=== PATIENT | female | born 1935 | race Hispanic/Latino ===

== ENCOUNTER 2017-09-20 12:11 | Emergency (ER) | payer MEDICARE ==
[~2017-09-20] VITALS: Ht 152.4 cm; Wt 47.2 kg
--- OUTSIDE RECORDS SUMMARY | 2017-09-20 12:14 | XMS REPORT | Summary of Care ---
Author Author Manish Tiarra Organization Unknown Address Unknown Phone Unavailable Care Team Providers Care Ribbon Hand Name Role Phone ManishFiorella rosaslyn Unavailable Unavailable YUMIKO Jasmine, WADE Unavailable Unavailable TIM HAM MD Unavailable Unavailable Unavailable Unavailable Functional Status Name Dates Details Functional status health issues are not documented Status: Name Dates Details Cognitive status health issues are not documented Status: Problems Name Dates Details Laryngitis (464.00, J04.0) Status: Active Sore throat (462, J02.9) Status: Active Dysphagia (787.20, R13.10) Status: Active Esophageal dysmotility (530.5, K22.4) Status: Active Medications Name Dates Details Gabapentin 300 MG Oral Capsule TAKE 1 CAPSULE 3 TIMES DAILY Active Famotidine 20 MG Oral Tablet TAKE 1 TABLET TWICE DAILY. * Quantity: 60 Refills: 11 Active Ipratropium-Albuterol 0.5-2.5 (3) MG/3ML Inhalation Solution INHALE 2 PUFFS TWICE DAILY * Refills: 0 Active 30 x 3 ML Plas Cont Vitamin C 1000 MG Oral Tablet TAKE 1 TABLET DAILY. * Refills: 0 Active RaNITidine HCl - 150 MG Oral Tablet TAKE 1 TABLET TWICE DAILY. * Refills: 0 Active MagOx 400 TABS TAKE 1 TABLET DAILY * Refills: 0 Active Calcitonin (Hollister) 200 UNIT/ACT Nasal Solution INSTILL 1 PUFF DAILY * Refills: 0 Active 3.7 ML Bottle Tylenol 500 MG CAPS TAKE 1 CAPSULE 3 TIMES DAILY * Refills: 0 Active Iron TABS TAKE 1 TABLET DAILY DIRECTED. * Refills: 0 Active Centrum Silver Adult 50+ Oral Tablet TAKE 1 TABLET DAILY. * Refills: 0 Active Calcium TABS TAKE 1 TABLET DAILY. * Refills: 0 Active Vitamin D3 1000 UNIT Oral Tablet TAKE 1 TABLET DAILY. * Refills: 0 Active Levsin/SL 0.125 MG Sublingual Tablet Sublingual PLACE 1 TABLET UNDER THE TONGUE 3 TIMES DAILY NEEDED. * Quantity: 90 Refills: 3 OBONYJOSAFAT N.P.WADE * Start : 25-Apr-2017 Active Allergies and Adverse Reactions Name Dates Details codeine (Allergy) Reaction: Rash Status: Active Past Medical History Name Dates Details History of Depressive disorder (311, F32.9) Status: Resolved History of migraine headaches (V12.49, Z86.69) Status: Resolved Procedures Procedure Dates Details History of hip surgery Completed Immunization Name Dates Details Immunizations not documented Family History Name Dates Details Family history of asthma (V17.5, Z82.5) Comments: Family History Status: Active Name Dates Details Family history of diabetes mellitus (V18.0, Z83.3) Status: Active Social History Name Dates Details - Status: Name Dates Details Former smoker Vital Signs Date Test Result Details No Known Vitals to report Results Date Description Value Details Results not documented Plan of Care Name Dates Details Planned Observations Planned Goals not documented Instructions Name Dates Details Instructions not documented Encounters Appointment; LEONCIO JAIMES M.D. Encounter Diagnosis: Problem not documented On: 08-Feb-2017 15:00 Appointment; LEONCIO JAIMES M.D. Encounter Diagnosis: Problem not documented On: 01-Mar-2017 13:00 Appointment; LEONCIO JAIMES M.D. Encounter Diagnosis: Problem not documented On: 04-Apr-2017 13:45 Appointment; MARGUERITE IRIZARRY M.D. Encounter Diagnosis: Problem not documented On: 25-Apr-2017 11:30
[2017-09-20] MEDS ORDERED: MEDROL4 MG PO (14:34)
== END 2017-09-20 14:45 | disposition home or self-care (01) ==
LOC: FSED 12:11
DX: M25.561 Pain in right knee (principal); M17.11 Unilateral primary osteoarthritis, right knee
CPT/HCPCS: 99283

== ENCOUNTER 2017-12-08 21:00 | Emergency (ER) | payer MEDICARE ==
[~2017-12-08] VITALS: Ht 152.4 cm; Wt 48.1 kg
[~2017-12-08 21:00] MED LIST: MEDROL4 MG PO
--- OUTSIDE RECORDS SUMMARY | 2017-12-08 21:03 | XMS REPORT | Continuity of Care Document ---
Author Author [facility] Organization [facility] Address [address] [place] [address] Phone Unavailable Care Team Providers Care Dog Breeder Name Role Phone TIM HAM MD PCP Insurance Providers Guarantor Rosette Andersen Address [address] [place] [address] Email [email or web address] Payer Medicare A & B Policy Number [id number] Subscriber's Name Rosette Andersen Relationship 18 Self / Same As Patient Group Number [id number] Group Name RETIRED Effective Date 99 Advance Directives Directive Response Recorded Date/Time Does the patient have an advance directive? No 09/20/17 12:27pm If yes, is advance directive on file with [facility]? No 09/20/17 12:27pm If not on file with [facility] will patient provide a copy? No 09/20/17 12:27pm Do you have a Directive to Physician? No 09/20/17 12:27pm Do you have a Medical Power of Center Medical Director? No 09/20/17 12:27pm Do you have an out of hospital Do Not Resuscitate Order? No 09/20/17 12:27pm Do you have any special needs we should be aware of? No 09/20/17 12:27pm Do you have a support person here with you today? Yes 09/20/17 12:27pm Did patient receive Notice of Privacy Practices? Yes 09/20/17 12:27pm Did patient receive patient rights and responsibilities? Yes 09/20/17 12:27pm Problems No problem information available. Medications Current Home Medications Medication Dose Units Route Directions Days Qty Instructions Start Date Methylprednisolone (Medrol) 4 Mg Tablet 1 Pkt Oral .as Directed 1 Drcm Unit Packet MEDROL DOSE PACK DIRECTED 09/20/17 Social History Smoking Status Start Date Stop Date Former smoker Hospital Discharge Instructions No hospital discharge instruction information available. Plan of Care Discharge Date 09/20/17 2:45pm Disposition HOME, SELF-CARE Condition at Discharge Stable Instructions/Education Provided Osteoarthritis Prescriptions See Medication Section Referrals TIM HAM MD Address: [address] [place] [address] Additional Instructions/Education You may take each day of the Medrol dose pack, first thing in the morning, for 5 days. Alternate Ice and Heat to the right knee, and rest it as much as possible. Use the SARABJIT wrap, while awake to help with swelling. In addition to the Medrol dose pack, you may take Ibuprofen 200 mg - 2-3 tabs every 8-12 hours, with food, for pain and inflammation. Follow-up with your PCP, for referral to an Orthopedist, if the knee pain persists. Functional Status No functional status information available. Allergies, Adverse Reactions, Alerts No allergy information available. Immunizations No immunization information available. Vital Signs Acute Vital Signs Vital Response Date/Time Height 5 ft 0 in 09/20/2017 12:20pm Weight 104 lb 09/20/2017 12:20pm Body Mass Index 20.3 kg/m^2 09/20/2017 12:20pm Results No relevant diagnostic test, laboratory data and/or discharge summary information available. Procedures No procedure information available. Encounters Encounter Location Arrival/Admit Date Discharge/Depart Date Attending Provider Departed Emergency Room [facility] 09/20/17 12:11pm 09/20 2:45pm IVONE KUO MD
[2017-12-08] MEDS ORDERED: ALBUTEROL/IPRATROPIUM 3 ML NEB NEB ONE (21:30)
[2017-12-08] MEDS ORDERED: METHYLPREDNISOLONE SOD SUCC 125 MG/2ML VIAL IM ONE (21:30)
[2017-12-08] MEDS ORDERED: VITAMIN D31000 UNI1 PO (22:56)
[2017-12-08] MEDS ORDERED: VITAMIN C1000 MG PO (22:56)
[2017-12-08] MEDS ORDERED: MAGNESIUM OXID400 MG PO (22:56)
[2017-12-08] MEDS ORDERED: IRON PO (22:56)
[2017-12-08] MEDS ORDERED: CALCITONIN-SAL3.7 ML NS (22:56)
[2017-12-08] MEDS ORDERED: VESICARE5 MG PO (22:56)
[2017-12-08] MEDS ORDERED: ADVAIR 250-501 EACH (22:56)
[2017-12-08] MEDS ORDERED: CALCIUM CARBON500 MG PO (22:56)
[2017-12-08] MEDS ORDERED: COMBIVENT RESPIM4 GM IH (22:56)
[2017-12-08] MEDS ORDERED: LEVOCETIRIZINE D5 MG PO (22:56)
[2017-12-08] MEDS ORDERED: RANITIDINE HCL150 M1 PO (22:56)
[2017-12-08] MEDS ORDERED: GABAPENTIN400 MG PO (22:56)
[2017-12-08 23:29] VITALS: BP 120/64
== END 2017-12-08 23:33 | disposition home or self-care (01) ==
LOC: FSED 21:00
DX: R07.89 Other chest pain (principal); J98.4 Other disorders of lung
CPT/HCPCS: 71046; 80053; 82553; 84484; 85025; 93005; 99283; J2930

== ENCOUNTER 2018-01-02 12:20 | Emergency (ER) | payer MEDICARE ==
[~2018-01-02] VITALS: Ht 152.4 cm; Wt 48.1 kg
[~2018-01-02 12:20] MED LIST changes: +ADVAIR 250-501 EACH; +CALCITONIN-SAL3.7 ML NS; +CALCIUM CARBON500 MG PO; +COMBIVENT RESPIM4 GM IH; +GABAPENTIN400 MG PO; +IRON PO; +LEVOCETIRIZINE D5 MG PO; +MAGNESIUM OXID400 MG PO; +RANITIDINE HCL150 M1 PO; +VESICARE5 MG PO; +VITAMIN C1000 MG PO; +VITAMIN D31000 UNI1 PO
--- OUTSIDE RECORDS SUMMARY | 2018-01-02 12:22 | XMS REPORT | Continuity of Care Document ---
Author Author [facility] Organization [facility] Address [address] [place] [address] Phone Unavailable Care Team Providers Care Needle Punch Operator Name Role Phone TIM HAM MD PCP Insurance Providers Guarantor Rosette Andersen Address [address] [place] [address] Email [email or web address] Payer Medicare A & B Policy Number [id number] Subscriber's Name Rosette Andersen Relationship 18 Self / Same As Patient Group Number [id number] Group Name RETIRED Effective Date 99 Advance Directives Directive Response Recorded Date/Time Does the patient have an advance directive? No 09/20/17 12:27pm If yes, is advance directive on file with [facility]? No 09/20/17 12:27pm If not on file with [facility] will patient provide a copy? No 09/20/17 12:27pm Problems No problem information available. Medications Current Home Medications Medication Dose Units Route Directions Days Qty Instructions Start Date Ascorbic Acid (Vitamin C) 1,000 Mg Tablet 1,000 Mg Oral Daily Calcitonin,Terry,Synthetic (Calcitonin-Terry) 3.7 Ml Clare.pump 1 Sprays Nasal Calcium Carbonate 500 Mg Tablet 600 Mg Oral Cholecalciferol (Vitamin D3) (Vitamin D3) 1,000 Unit Tablet 1,000 Oral Daily Fluticasone/Salmeterol (Advair 250-50 Diskus) 1 Each Disk.w.dev 2 Sprays Daily Gabapentin 400 Mg Capsule 400 Mg Oral Three Times A Day 30 Cap Ipratropium/Albuterol Sulfate (Combivent Respimat Inhal Clare) 4 Gm Aer.w.adap 4 Gm Inhalation Four Times Daily Iron 27 Mg Oral Daily Levocetirizine Dihydrochloride 5 Mg Tablet Mg Oral Daily Magnesium Oxide 400 Mg Tablet 400 Mg Oral Daily Methylprednisolone (Medrol) 4 Mg Tablet 1 Pkt Oral .as Directed 1 Drcm Unit Packet MEDROL DOSE PACK DIRECTED 09/20/17 Ranitidine Hcl 150 Mg Capsule 150 Mg Oral Twice A Day Solifenacin Succinate (Vesicare) 5 Mg Tablet 5 Mg Oral Daily 30 Tab Social History Smoking Status Start Date Stop Date Former smoker Hospital Discharge Instructions No hospital discharge instruction information available. Plan of Care Discharge Date 12/08/17 11:33pm Disposition HOME, SELF-CARE Condition at Discharge Stable Forms Provided Work/School Excuse Prescriptions See Medication Section Functional Status No functional status information available. Allergies, Adverse Reactions, Alerts No known allergies. Immunizations No immunization information available. Vital Signs Acute Vital Signs Vital Response Date/Time Pulse Pulse Rate (adult) 91 bpm (60 - 90) 12/08/2017 11:29pm Respiratory Rate 20 bpm (12 - 24) 12/08/2017 11:29pm Blood Pressure 120/64 mm Hg 12/08/2017 11:29pm Height 5 ft 0 in 12/08/2017 9:05pm Weight 106 lb 12/08/2017 9:05pm Body Mass Index 20.7 kg/m^2 12/08/2017 9:05pm Results No relevant diagnostic test, laboratory data and/or discharge summary information available. Procedures No procedure information available. Encounters Encounter Location Arrival/Admit Date Discharge/Depart Date Attending Provider Departed Emergency Room [facility] 12/08/17 9:00pm 11:33pm TERRELL ABBOTT MD Departed Emergency Room [facility] 09/20/17 12:11pm 09/20 2:45pm IVONE KUO MD
[2018-01-02 14:11] VITALS: BP 119/69
== END 2018-01-02 14:13 | disposition home or self-care (01) ==
LOC: FSED 12:20
DX: R25.1 Tremor, unspecified (principal); J44.9 Chronic obstructive pulmonary disease, unspecified; K21.9 Gastro-esophageal reflux disease without esophagitis; Z99.81 Dependence on supplemental oxygen; Z87.891 Personal history of nicotine dependence
CPT/HCPCS: 80048; 99283

== ENCOUNTER 2018-03-23 10:17 | Inpatient (IN) | payer MEDICARE ==
[~2018-03-23] VITALS: Ht 152.4 cm; Wt 48.6 kg
[2018-03-23] MEDS ORDERED: SODIUM CHLORIDE 0.9% 1000ML 1,000 ML IV STA (10:31)
[2018-03-23] MEDS ORDERED: DIPHENOXYLATE/ATROPINE TAB PO ONE (10:45)
[2018-03-23 11:32] LABS: BASOPHILS # (AUTO) 0.1 (0.0-0.1); BASOPHILS % 1.1 % (0.0-1.0); EOSINOPHILS % 0.2 % (0.0-6.0); HEMATOCRIT 43.1 % (34.2-44.1); HEMOGLOBIN 14.2 g/dL (12.0-16.0); LYMPHOCYTES # (AUTO) 0.5 (1.0-3.2); LYMPHOCYTES % 7.7 % (18.0-39.1); MEAN CORPUSCULAR HGB CONC 32.9 g/dL (31-35); MEAN CORPUSCULAR VOLUME 90.9 fL (81-99); MONOCYTES # (AUTO) 0.4 (0.2-0.8); MONOCYTES % 5.7 % (4.4-11.3); NEUTROPHILS # (AUTO) 5.5 (2.1-6.9); PLATELET COUNT 222 x10e3/uL (140-360); RED BLOOD COUNT 4.74 x10e6/uL (3.6-5.1); RED CELL DISTRIBUTION WIDTH 14.5 % (11.7-14.4)
[2018-03-23 11:52] LABS: ALBUMIN/GLOBULIN RATIO 0.8 (0.8-2.0); ANION GAP 16.2 mmol/L (8-16); CALCIUM 9.7 mg/dL (8.4-10.2); CREATININE, SERUM 1.14 mg/dL (0.57-1.11); POTASSIUM 4.2 mmol/L (3.5-5.1)
[2018-03-23] MEDS ORDERED: ONDANSETRON HCL INJ 2 MG/ML VIAL IV PRN (12:45)
[2018-03-23 13:30] LABS: BAND NEUTROPHILS % (MANUAL) 18 %; LYMPHOCYTES % (MANUAL) 17 % (19-48); METAMYELOCYTES % (MANUAL) 3 % (0-0); MONOCYTES % (MANUAL) 2 % (3.4-9.0); MYELOCYTES % (MANUAL) 1 % (0-0); NEUTROPHILS % (MANUAL) 59 % (40-74)
[2018-03-23] MEDS ORDERED: LEVOFLOXACIN 500MG/D5W 100ML IV SCH (13:30)
[2018-03-23 13:31] LABS: PLATELET ESTIMATE ADEQUATE; PLATELET MORPHOLOGY COMMENT FEW GIANT; RBC MORPHOLOGY COMMENT NORMAL; SMUDGE CELLS FEW
[2018-03-23] MEDS ORDERED: SODIUM CHLORIDE 0.9% 50ML 50 ML ONE (13:37)
[2018-03-23] MEDS ORDERED: IOPAMIDOL 370 MG/ML 200 ML INFUS..BTL INJ ONE (13:37)
[2018-03-23 13:59] LABS: CLARITY,URINE CLEAR (CLEAR); COLOR,URINE YELLOW (YELLOW); LEUKOCYTE ESTERASE ,URINE TRACE (NEGATIVE); NITRITE,URINE NEGATIVE (NEGATIVE); PROTEIN,URINE DIPSTICK TRACE (NEGATIVE)
--- NOTE | 2018-03-23 13:59 | Diagnostic Imaging Report ---
EXAM: CT Abdomen and Pelvis WITH contrast INDICATION: \S\ab pain \S\[id number] \S\[id number] COMPARISON: None. TECHNIQUE: Abdomen and pelvis were scanned utilizing a multidetector helical scanner from the lung base to the pubic symphysis after administration of IV contrast. Coronal and sagittal reformations were obtained. Routine protocol was performed. Scan was performed when during portal venous phase. IV CONTRAST: 100 mL of Isovue 370 ORAL CONTRAST: Water COMPLICATIONS: None RADIATION DOSE: Total DLP: 173.83 mGy*cm Estimated effective dose: (DLP x 0.015 x size factor) mSv CTDIvol has been reviewed. It is below the limits set by the Radiation Protocol Committee (RPC). FINDINGS: LINES and TUBES: None. LOWER THORAX: Bibasilar fibrotic changes. Partially imaged atherosclerotic calcification of coronary arteries. HEPATOBILIARY: No focal hepatic lesions. No biliary ductal dilation. GALLBLADDER: No radio-opaque stnes or sludge. No wall thickening. SPLEEN: No splenomegaly. PANCREAS: Atrophic. No focal lesion. Minimal proximal ductal dilatation up to 4 mm. ADRENALS: No adrenal nodules KIDNEYS/URETERS: Markedly atrophic right kidney. There is a 2.3 cm calculus seen right renal pelvis. Left kidney is unremarkable. No left hydronephrosis. GI TRACT: Multiple air and fluid-filled distended small bowel loops with narrowing of the distal ileal loop. Small hiatal hernia. PELVIC ORGANS/BLADDER: Limited evaluation due to streak artifacts. LYMPH NODES: No lymphadenopathy. VESSELS: There is severe atherosclerotic disease in the aorta and major arterial branches. PERITONEUM / RETROPERITONEUM: No free air or fluid. BONES: Left hip prosthesis. Generalized demineralization limits evaluation. Lumbar spine scoliosis with multilevel advanced degenerative changes. T12 vertebral body compression fracture of indeterminate age. SOFT TISSUES: Unremarkable. IMPRESSION: 1. Multiple air and fluid-filled distended small bowel loops with narrowed and some collapsed distal ileal loops, representing at least partial small bowel obstruction. 2. Markedly atrophic right kidney with a 2.3 cm calculus in right lower pelvis. 3. T12 vertebral body compression fracture of indeterminate age. Signed by: Dr. Nain Cameron MD on 03/23/2018 1:56 PM
[2018-03-23 14:00] LABS: BILIRUBIN,URINE NEGATIVE (NEGATIVE); KETONES,URINE 1+ (NEGATIVE); URINE UROBILINOGEN 0.2 mg/dL (0.2 - 1)
[2018-03-23 14:13] LABS: BACTERIA,URINE FEW /HPF; EPITHELIAL CELLS,URINE RARE /LPF; RBC,URINE 0-5 /HPF (0-5)
[2018-03-23] MEDS ORDERED: LORAZEPAM INJ 2 MG/ML VIAL IV ONE (15:15)
[2018-03-23] MEDS ORDERED: BENZOCAINE/TETRACAINE/BUTAMBEN AERO SPRAY 56 GM CAN TOP ONE (15:15)
[2018-03-23] MEDS: SODIUM CHLORIDE 0.9% 250ML IRRIG IR SCH ×2 (15:45→19:45)
--- NOTE | 2018-03-23 17:13 | Diagnostic Imaging Report ---
EXAMINATION: CHEST SINGLE (PORTABLE) INDICATION: \S\NG TUBE PLACEMENT \S\[id number] \S\[id number] COMPARISON: Same day CT FINDINGS: See below. IMPRESSION: Nasogastric tube is visualized with tip overlying gastric body. Lumbar spine scoliosis with multilevel degenerative changes. Chronic changes of the lungs. Signed by: Dr. Nain Cameron MD on 03/23/2018 5:10 PM
--- NOTE | 2018-03-23 18:05 | History and Physical ---
Patient was admitted through the emergency room. Patient of Dr. Finch. Admitted with apparent lower GI bleed and diarrhea of 5 days duration and abdominal pain. History of end-stage COPD, on home oxygen. Dark stools. Uses a walker at home. Lives with family and caregivers. FAMILY HISTORY: Positive for COPD. The patient quit smoking in 2010. Decreased appetite, dark stools. She is not able to relate her history though she does smile and complains of pain in the abdomen. She has a history of nonfunctioning right kidney with a stone. She was told she was not a candidate for general anesthetic. She has a history of dementia. She is a DNR status. PHYSICAL EXAMINATION VITALS: Temperature 99.2, pulse 70, respirations 18, blood pressure 108/45. HEENT: Head is normocephalic and atraumatic. Eyes: Extraocular muscles intact. LUNGS: Diminished breath sounds. HEART: Regular rhythm. ABDOMEN: Tender in the lower quadrant, right greater than left. EXTREMITIES: Not edematous. Sacral wound. PLAN: Admit for observation. CT of the abdomen is pending. Discussed with the emergency room physician. Her home medications have include vitamin C, calcitonin, vitamin D, Advair, Atrovent, Neurontin, Xyzal, magnesium, Zantac, p.r.n. Medrol, VESIcare, and iron. Thank you for this kind referral. Job#: [id number] SHAKEEL
[2018-03-23 18:27] VITALS: BP 123/73
[2018-03-23 18:34] VITALS: BP 123/73
[2018-03-23 18:44] VITALS: BP 123/73
[2018-03-23] MEDS: ALBUTEROL/IPRATROPIUM 3 ML NEB NEB SCH (19:00)
[2018-03-23 20:00] VITALS: BP 122/76
[2018-03-23 20:06] VITALS: BP 122/76
[2018-03-23] MEDS: HEPARIN SOD (PORCINE) 5,000 UNIT/ML VIAL SC SCH (21:35)
[2018-03-23] MEDS: METRONIDAZOLE 250MG/NS 50ML 50 ML IV SCH (21:39)
[2018-03-24] MEDS: SODIUM CHLORIDE 0.9% 250ML IRRIG IR SCH ×5 (00:09→15:45)
[2018-03-24 00:44] VITALS: BP 104/58
[2018-03-24] MEDS: ALBUTEROL/IPRATROPIUM 3 ML NEB NEB SCH ×4 (01:00→19:30)
[2018-03-24 04:43] LABS: BASOPHILS % 0.4 % (0.0-1.0); EOSINOPHILS # (AUTO) 0.1 (0.0-0.4); HEMATOCRIT 38.8 % (34.2-44.1); HEMOGLOBIN 12.9 g/dL (12.0-16.0); LYMPHOCYTES % 14.7 % (18.0-39.1); MEAN CORPUSCULAR HEMOGLOBIN 29.5 pg (28-32); MEAN CORPUSCULAR HGB CONC 33.2 g/dL (31-35); MEAN CORPUSCULAR VOLUME 88.8 fL (81-99); MONOCYTES # (AUTO) 0.5 (0.2-0.8); MONOCYTES % 6.9 % (4.4-11.3); NEUTROPHILS # (AUTO) 5.1 (2.1-6.9); NEUTROPHILS % 76.6 % (38.7-80.0); PLATELET COUNT 207 x10e3/uL (140-360); RED BLOOD COUNT 4.37 x10e6/uL (3.6-5.1); RED CELL DISTRIBUTION WIDTH 14.4 % (11.7-14.4)
[2018-03-24 05:00] LABS: BLOOD UREA NITROGEN 26 mg/dL (7-26); CALCIUM 8.8 mg/dL (8.4-10.2); CARBON DIOXIDE 21 mmol/L (22-29); GLUCOSE 68 mg/dL (74-118)
[2018-03-24 05:17] LABS: BUN/CREATININE RATIO 31 (6-25); CHLORIDE 108 mmol/L (98-107); CREATININE, SERUM 0.83 mg/dL (0.57-1.11); EST GLOMERULAR FILTRATION RATE > 60 ML/MIN (60-); SODIUM 141 mmol/L (136-145)
[2018-03-24] MEDS: METRONIDAZOLE 250MG/NS 50ML 50 ML IV SCH ×3 (06:07→21:55)
[2018-03-24 06:08] VITALS: BP 114/69
--- NOTE | 2018-03-24 06:49 | Diagnostic Imaging Report ---
EXAM: ABDOMEN-1VIEW (KUB), supine INDICATION: Ileus, NG tube COMPARISON: KUB March 23, 2018 FINDINGS: LINES/TUBES: Tip of nasogastric tube projects over the body of the stomach BOWEL PATTERN: Interval decrease in dilated loops of small bowel. SOFT TISSUES: IV contrast in the pelvis. LUNG BASES: Not included BONES: No acute findings. IMPRESSION: Interval improvement of ileus versus partial small bowel obstruction. Signed by: Dr. Suad Silveira M.D. on 03/24/2018 6:46 AM
[2018-03-24 08:00] VITALS: BP 135/70
[2018-03-24] MEDS: HEPARIN SOD (PORCINE) 5,000 UNIT/ML VIAL SC SCH ×2 (08:47→21:45)
[2018-03-24 09:00] VITALS: BP 135/70
[2018-03-24] MEDS: SALMETEROL/FLUTICASONE 250/50 INH SCH ×2 (09:00→19:30)
[2018-03-24] MEDS: LEVOFLOXACIN 250MG/D5W 50ML PREMIX BAG IV SCH (12:53)
[2018-03-24 16:00] VITALS: BP 123/62
[2018-03-24] MEDS: BALSAM PERU/CASTOR OIL 60 GM OINT...G. TP SCH (17:00)
[2018-03-24 20:00] VITALS: BP 137/72
--- NOTE | 2018-03-24 21:21 | Consultation ---
DATE OF CONSULTATION: March 24, 2018 CHIEF COMPLAINT: Abdominal pain and vomiting and diarrhea. HISTORY OF PRESENT ILLNESS: The patient is an 83-year-old female with several-day history of abdominal discomfort and diarrhea with some bloody stool. Patient denies nausea and vomiting. PAST MEDICAL HISTORY: Positive for COPD. SURGICAL HISTORY: Positive for hysterectomy. SOCIAL HABITS: Patient denies smoking or alcohol abuse. ALLERGIES: PENICILLIN. REVIEW OF SYSTEMS: No chest pain or shortness of breath or cough. EXAM VITALS: Stable. Afebrile. GENERAL: She is awake, alert, in no apparent distress. HEENT: Sclerae are nonicteric. NECK: Supple. LUNGS: Clear. HEART: Regular rate and rhythm. ABDOMEN: Soft. No focal tenderness. EXTREMITIES: Without cyanosis, edema. White cell count is 6, hemoglobin of 14, and creatinine of 1.1. Liver function tests bilirubin of 1.6 and alkaline phos of 144. CT of the abdomen showed multiple air-fluid levels suggestive of partial intestinal obstruction. Followup chest x-ray showed improvement in small bowel dilatation. ASSESSMENT: Partial small bowel obstruction on computed tomography scan has improved. The patient has been passing some gas per rectum. PLAN: Clear liquid diet as tolerated. Will follow patient with you. Job#: [id number]
[2018-03-25] VITALS (7 sets, daily range): BP systolic 90–144; BP diastolic 51–72
[2018-03-25 05:13] LABS: BASOPHILS % 0.4 % (0.0-1.0); EOSINOPHILS # (AUTO) 0.2 (0.0-0.4); EOSINOPHILS % 2.5 % (0.0-6.0); HEMATOCRIT 35.9 % (34.2-44.1); LYMPHOCYTES % 15.2 % (18.0-39.1); MEAN CORPUSCULAR HEMOGLOBIN 30.2 pg (28-32); MEAN CORPUSCULAR HGB CONC 33.4 g/dL (31-35); MEAN CORPUSCULAR VOLUME 90.4 fL (81-99); MONOCYTES # (AUTO) 0.6 (0.2-0.8); MONOCYTES % 8.1 % (4.4-11.3); NEUTROPHILS # (AUTO) 4.9 (2.1-6.9); NEUTROPHILS % 72.5 % (38.7-80.0); PLATELET COUNT 226 x10e3/uL (140-360); RED BLOOD COUNT 3.97 x10e6/uL (3.6-5.1); RED CELL DISTRIBUTION WIDTH 14.4 % (11.7-14.4)
[2018-03-25] MEDS: METRONIDAZOLE 250MG/NS 50ML 50 ML IV SCH ×3 (05:14→22:00)
[2018-03-25 05:40] LABS: ANION GAP 14.5 mmol/L (8-16); BLOOD UREA NITROGEN 18 mg/dL (7-26); BUN/CREATININE RATIO 26 (6-25); CALCIUM 8.6 mg/dL (8.4-10.2); CARBON DIOXIDE 22 mmol/L (22-29); CHLORIDE 106 mmol/L (98-107); CREATININE, SERUM 0.69 mg/dL (0.57-1.11); EST GLOMERULAR FILTRATION RATE > 60 ML/MIN (60-); GLUCOSE 76 mg/dL (74-118); POTASSIUM 3.5 mmol/L (3.5-5.1); SODIUM 139 mmol/L (136-145)
--- NOTE | 2018-03-25 06:40 | Diagnostic Imaging Report ---
EXAM: CT Chest WITHOUT contrast 03/25/2018 5:00 AM INDICATION: UIP COMPARISON: Chest x-ray on 03/23/2018 TECHNIQUE: Chest was scanned utilizing a multidetector helical scanner from the lung apex through the level of the adrenal glands without administration of IV contrast. Absence of intravenous contrast decreases sensitivity for detection of lymphadenopathy and vascular pathology. Coronal and sagittal reformations were obtained. Routine protocol was performed. IV CONTRAST: None RADIATION DOSE: Total DLP: 329.39 mGy*cm Estimated effective dose: (DLP x 0.014 x size factor) mSv COMPLICATIONS: None FINDINGS: LINES/ TUBES: None. LUNGS AND AIRWAYS: There is evidence of centrilobular emphysema, central bronchiectasis and cystic changes predominantly in the lung bases. Focal areas of focal honeycombing, series 3, image 64. PLEURA: The pleural spaces are clear. HEART AND MEDIASTINUM: The thyroid gland is normal. No mediastinal, hilar or axillary lymphadenopathy. The heart is normal in size.. There is no pericardial effusion. There are significant atherosclerotic calcifications in the aorta and coronary arteries. UPPER ABDOMEN: Limited non-contrast views of the upper abdomen show no abnormality within the visualized liver, spleen, pancreas, or kidneys. The adrenal glands are normal. Hyperdensity of the gallbladder may be related to stones or vicarious excretion of contrast BONES: There are moderate to severe degenerative changes in the thoracic spine. SOFT TISSUES: Unremarkable. IMPRESSION: 1. Findings in the lung parenchyma are compatible with senile fibrosis and emphysema. 2. No evidence of classic UIP Signed by: Dr. Flaquito Florence M.D. on 03/25/2018 6:37 AM
[2018-03-25] MEDS: SALMETEROL/FLUTICASONE 250/50 INH SCH ×2 (07:00→19:45)
[2018-03-25] MEDS: ALBUTEROL/IPRATROPIUM 3 ML NEB NEB SCH ×4 (07:00→19:45)
[2018-03-25] MEDS: HEPARIN SOD (PORCINE) 5,000 UNIT/ML VIAL SC SCH ×2 (09:00→21:45)
[2018-03-25] MEDS: ACETAMINOPHEN 325 MG/10 ML UDC NG PRN (10:45)
[2018-03-25] MEDS: BALSAM PERU/CASTOR OIL 60 GM OINT...G. TP SCH ×2 (10:51→18:10)
[2018-03-25] MEDS: LEVOFLOXACIN 250MG/D5W 50ML PREMIX BAG IV SCH (12:34)
[2018-03-25 14:52] LABS: C DIFFICILE TOXIN A&B AMP PROB NEGATIVE (NEGATIVE); OCCULT BLOOD STOOL POSITIVE (NEGATIVE)
--- NOTE | 2018-03-25 19:44 | Consultation ---
DATE OF CONSULTATION: March 25, 2018 REQUESTING PHYSICIAN: Dr. Bowers CHIEF COMPLAINT: Abdominal pain, melena. HISTORY OF PRESENT ILLNESS: The patient is an 83-year-old female with past medical history of PUD and COPD, who presented to the ED with abdominal pain along with some diarrhea and bloody stools. The patient states that she has had this abdominal pain for the last week. She stated she had some bright red blood in the stool, but she does not recall having any stools while she has been here at the hospital. She denies any nausea or vomiting. She states that she has had many ulcers in the past. Her last EGD and colonoscopy were about 5 years ago, where they had found an ulcer, and she does not recall what they found on the colonoscopy. The patient is not a very good historian, and the majority of the history was taken from the record. She currently denies any further bleeding. She reports chronic RLQ abdominal pain. PAST MEDICAL HISTORY: Peptic ulcer disease, multiple pressure ulcers, COPD. SURGICAL HISTORY: Hysterectomy. SOCIAL HISTORY: Patient denies any alcohol use or smoking. ALLERGIES: PENICILLIN. REVIEW OF SYSTEMS: No shortness of breath, no chest pain, no cough, no hematemesis. PHYSICAL EXAMINATION VITALS: Temperature 99.2, pulse 70, respirations 18, blood pressure 108/45, stable. GENERAL: Awake, alert, oriented, in no apparent distress. HEENT: Normocephalic, atraumatic. LUNGS: Diminished breath sounds. HEART: Regular rate and rhythm, no murmur. ABDOMEN: Tender in the right lower quadrant with some guarding. Otherwise, soft and nondistended. EXTREMITIES: No cyanosis. No edema. SKIN: Sacral wound. Pressure ulcers. NEURO: Alert and oriented. LABS: White count 6.79, hemoglobin 12.0, MCV 90.4, RDW 14.4, platelet count 226. Creatinine is 0.69, glucose 76. AST 26, ALT 19. IMAGING: Abdominal CT shows multiple air and fluid-filled distended small-bowel loops with and some collapsed distal ileal loops representing at least partial SBO. However, abdominal x-ray from the shows improvement of ileus versus partial SBO. ASSESSMENT 1. Partial small-bowel obstruction on CT--improved. 2. Reported dark stools r/o Melena. 3. History of peptic ulcer disease. 4. Diarrhea. PLAN 1. The patient is currently tolerating a GI soft diet. 2. Monitor H and H. 3. Continue to monitor symptomatically. 4. no overt bleeding now, pantoprazole daily, avoid unnecessary NSAIDs. 5. Warrants repeat endoscopy - EGD and colonoscopy, can be outpatient as she is improving. Thank you for consulting us. We will follow. Job#: [id number] CHANTEL NOVOA
[2018-03-26] VITALS: BP 112/63
[2018-03-26 04:00] VITALS: BP 117/67
[2018-03-26] MEDS: METRONIDAZOLE 250MG/NS 50ML 50 ML IV SCH ×2 (06:23→14:00)
[2018-03-26 08:00] VITALS: BP 117/67
[2018-03-26 08:10] VITALS: BP 115/61
[2018-03-26] MEDS: BALSAM PERU/CASTOR OIL 60 GM OINT...G. TP SCH (09:00)
[2018-03-26] MEDS: HEPARIN SOD (PORCINE) 5,000 UNIT/ML VIAL SC SCH (09:00)
[2018-03-26 12:00] VITALS: BP 114/63
[2018-03-26] MEDS: LEVOFLOXACIN 250MG/D5W 50ML PREMIX BAG IV SCH (13:30)
[2018-03-26] MEDS: ALBUTEROL/IPRATROPIUM 3 ML NEB NEB SCH ×2 (13:41)
[2018-03-26] MEDS ORDERED: CHOLECALCIFEROL 1,000 UNIT TAB PO SCH (14:00)
[2018-03-26] MEDS ORDERED: SOLIFENACIN SUCCINATE 5 MG TAB PO SCH (14:00)
[2018-03-26] MEDS ORDERED: OYST-CAL-D 500MG TABLET PO SCH (14:00)
[2018-03-26] MEDS ORDERED: MAGNESIUM OXIDE 400 MG TAB PO SCH (14:00)
[2018-03-26] MEDS: ACETAMINOPHEN 325 MG/10 ML UDC NG PRN (14:47)
[2018-03-26] MEDS ORDERED: GABAPENTIN 400 MG CAP PO SCH (15:00)
[2018-03-26 16:00] VITALS: BP 118/64
[2018-03-26] MEDS ORDERED: LEVAQUIN500 MG PO (17:04)
[2018-03-26] MEDS ORDERED: FLAGYL250 MG PO (17:05)
--- NOTE | 2018-03-26 17:42 | Discharge Summary ---
FINAL DIAGNOSES 1. Partial small bowel obstruction, which has resolved, and Dr. Carrillo has cleared the patient. 2. Gastrointestinal bleed. Dr. Lucas evaluated the patient and recommended no endoscopy at this point in the hospital. Hemoglobin and hematocrit have been stable. 3. History of emphysema. 4. Chronic hypoxic respiratory failure. ADMISSION HISTORY AND HOSPITAL COURSE: Ms. Altamirano is an 83-year-old female. She presented with abdominal pain. She was found to have partial small bowel obstruction. Surgery and GI were consulted. Both have seen the patient and cleared the patient for discharge. The patient is doing well, tolerating diet. Hemoglobin and hematocrit have been stable. She will be discharged home to follow up with her primary care physician, gastroenterology and pulmonary as an outpatient. Discharge medication list reviewed. FOSTER MORA MD Job#: [id number]
[2018-03-27] MEDS ORDERED: SOLIFENACIN SUCCINATE 5 MG TAB PO SCH (09:00)
[2018-03-28] MEDS ORDERED: BALSAM PERU/CASTOR OIL 60 GM OINT...G. TP SCH (21:00)
== END 2018-03-26 17:45 | disposition home or self-care (01) | DRG 389 ==
LOC: ER 10:17 → ERHOLD 12:54 → MED/SURG2 17:42
PROVIDERS: ADMIT Internal Medicine Pulmonary Disease; ATTEND Internal Medicine Pulmonary Disease
DX: K56.51 Intestinal adhesions [bands], with partial obstruction (principal); K92.1 Melena; Z87.891 Personal history of nicotine dependence; J44.9 Chronic obstructive pulmonary disease, unspecified; Z99.81 Dependence on supplemental oxygen; Z87.11 Personal history of peptic ulcer disease; L89.152 Pressure ulcer of sacral region, stage 2
CPT/HCPCS: 36415; 51700; 71045; 71250; 74018; 74177; 80048; 80053; 81001; 82270; 85025; 86850; 86900; 87045; 87493; 94640; 99284; J1644; J1956; J2060; J7030; Q9967

== ENCOUNTER 2018-03-28 17:24 | Emergency (ER) | payer MEDICARE ==
[~2018-03-28] VITALS: Ht 152.4 cm; Wt 48.5 kg
[~2018-03-28 17:24] MED LIST changes: +FLAGYL250 MG PO; +LEVAQUIN500 MG PO
--- NOTE | 2018-03-28 19:06 | Diagnostic Imaging Report ---
ADDENDUM #1 Dose modulation, iterative reconstruction, and/or weight based adjustment of the mA/kV was utilized to reduce the radiation dose to as low as reasonably achievable. Signed by: Dr. Vu Rosas M.D. on 04/01/2018 5:01 PM ORIGINAL REPORT Exams: Head and cervical spine CTs without IV contrast History: Trauma, fall Comparison studies: None Technique: Axial images were obtained from the brain and cervical spine. Coronal and sagittal images reconstructed from the axial data. Intravenous contrast: None Findings: Head CT: Scalp: No abnormalities. Bones: No fractures, blastic or lytic lesions. Extra-axial spaces: No masses. No fluid collections. Brain sulci: Mildly prominent. Ventricles: Compensatory dilatation. No hydrocephalus. Parenchyma: No mass, acute hemorrhage or acute or chronic cortical vascular insults. Ill-defined and confluent hypodensities in the supratentorial white matter are nonspecific most compatible with chronic microvascular ischemic changes. Sellar/suprasellar region: No abnormalities. Craniocervical junction: The foramen magnum is patent. No Chiari one malformation. Cervical spine CT: Fractures: None. Soft tissues: No gross abnormalities. Atlantoaxial articulation: Intact. Alignment: Normal lumbar lordosis. Cervical curvature convex to the left. No subluxations. Cervicomedullary junction: No abnormalities. The foramen magnum is patent. Vertebrae: No infection or neoplasm. Degenerative changes: Ligamentous calcification posterior to the dens does not result in significant canal stenosis. Multilevel disc calcification. Disc height is otherwise maintained. And no significant canal or foraminal stenosis. Multilevel facet arthrosis (right greater than left Incidental findings: Atherosclerotic calcifications in the carotid siphons and at the cervical carotid bulbs. Bilateral intraocular lens replacements for previa scattered surgery. Mild nonspecific scarring at the lung apices. IMPRESSION: Head CT: 1. No acute abnormalities. 2. Mild generalized volume loss. 3. Moderate chronic microvascular ischemic changes Cervical spine CT: 1. No cervical spine fracture or subluxation. 2. Degenerative changes as described. 3. Cannot exclude ligament, spinal cord and or vascular abnormalities on the basis of this examination. Signed by: Dr. Vu Rosas M.D. on 03/28/2018 7:03 PM
--- NOTE | 2018-03-28 19:23 | Diagnostic Imaging Report ---
Shoulder 2 views CPT code: 23652 Indication:Fall, right lateral rib pain and right shoulder pain Comparison: CT chest 03/25/2018. Findings: 2 views of the right shoulder were obtained. The bones are diffusely demineralized. The bones are normally aligned No fractures are identified. There is remodeling of the humeral head suggestive of rotator cuff pathology. Visualized portions of the ribs demonstrate healed fractures of the second, fourth, fifth, and sixth ribs. There is no pneumothorax. Mild pleural thickening and reticulation of the visualized lung mcneil are stable. IMPRESSION: No acute fracture or dislocation of the shoulder. Healed right rib fractures. Remodeling of the right humeral head suggestive of rotator cuff pathology. Signed by: Dr. Александр Duvall MD on 03/28/2018 7:19 PM
--- NOTE | 2018-03-28 19:32 | Diagnostic Imaging Report ---
EXAM: RIBS UNILAT W/CXR DATE: 03/28/2018 5:35 PM INDICATION: Fall/right pain COMPARISON: None FINDINGS: Chest: Heart prominent. Moderate aortic vascular calcifications are present. There is hilar fullness and probable prominence of pulmonary arteries. Fibrotic changes in the lung bases likely similar to 03/12/[address] RIBS: Osseous demineralization and positioning limits evaluation. Right lateral sixth and seventh nondisplaced rib fractures present. No distinct pneumothorax. IMPRESSION: Right sixth and seventh nondisplaced rib fractures. Fibrotic changes lung bases. Signed by: Dr. Juaquin Connor MD on 03/28/2018 7:28 PM
[2018-03-28 20:34] VITALS: BP 113/68
== END 2018-03-28 20:49 | disposition home or self-care (01) ==
LOC: ER 17:24
DX: S00.83XA Contusion of other part of head, initial encounter (principal); S40.011A Contusion of right shoulder, initial encounter; S22.41XA Multiple fractures of ribs, right side, initial encounter for closed fracture; W18.2XXA Fall in (into) shower or empty bathtub, initial encounter; Y93.E1 Activity, personal bathing and showering; Y92.002 Bathroom of unspecified non-institutional (private) residence as the place of occurrence of the external cause
CPT/HCPCS: 70450; 71101; 72125; 99284

== ENCOUNTER → 2018-04-03 | Outpatient (CLI) | payer MEDICARE ==
[~2018-04-03] MED LIST changes: +IOPAMIDOL 370 MG/ML 200 ML INFUS..BTL INJ ONE; +MESALAMINE; +PREDNISOLONE5 GM PO; +SODIUM CHLORIDE 0.9% 50ML 50 ML ONE
[2018-04-03 09:32] LABS: BLOOD UREA NITROGEN 6 mg/dL (7-26); BUN/CREATININE RATIO 8 (6-25); CREATININE, SERUM 0.71 mg/dL (0.57-1.11); EST GLOMERULAR FILTRATION RATE > 60 ML/MIN (60-)
--- NOTE | 2018-04-03 15:07 | Diagnostic Imaging Report ---
EXAMINATION: CT of the abdomen and pelvis with contrast/enterography. TECHNIQUE: Spiral CT images of the abdomen and pelvis were performed from the lung bases to the lesser trochanters after the intravenous administration of 100 cc of Omnipaque 300 and the oral administration of Volumen. Coronal and sagittal reformatted images were obtained. COMPARISON: CT abdomen and pelvis 03/23/2018 CLINICAL HISTORY:Ileitis, right lower quadrant pain, diarrhea DISCUSSION: ABDOMEN/PELVIS: LOWER THORAX:Stable bilateral basal fibrotic changes. Atherosclerotic calcification of the coronary arteries and thoracic aorta. Mild cardiomegaly. HEPATOBILIARY: Decreased attenuation of the hepatic parenchyma compared to the spleen, consistent with tendinosis. No focal lesions. No intra or extrahepatic biliary ductal dilation. GALLBLADDER: No radio-opaque stones or sludge. No wall thickening. SPLEEN: No splenomegaly. PANCREAS: No focal masses or ductal dilatation. Generalized mild pancreatic atrophy ADRENALS: No adrenal nodules. KIDNEYS/URETERS: Stable markedly atrophic right kidney with 2.3 cm obstructing calculus in the right renal pelvis. Left kidney shows no stones, hydronephrosis or obstruction. No enhancing masses. PELVIC ORGANS/BLADDER: Evaluation of the pelvis is limited by beam hardening artifact from left hip prosthesis. Visualized bladder is unremarkable. PERITONEUM/RETROPERITONEUM: No free air or fluid. LYMPH NODES: No intra-abdominal, retroperitoneal, pelvic or inguinal lymphadenopathy. VESSELS: The celiac trunk,superior and inferior mesenteric and bilateral renal arteries are patent The portal, superior mesenteric and splenic veins are patent. Atherosclerotic calcification of the abdominal aorta and iliac vessels. GI TRACT: Interval resolution of previously visualized small bowel dilation. No bowel dilation or evidence of obstruction. No focal areas of abnormal enhancement or wall thickening. No intraluminal masses. Fluid-filled large bowel. BONES AND SOFT TISSUE: No aggressive lytic lesions. Generalized osteopenia. Marked multilevel degenerative disc changes in the lower thoracic and lumbosacral spine, with levoscoliosis. Stable age indeterminate compression fracture of the T12 vertebral body. Total left hip replacement. Soft tissues are grossly unremarkable. IMPRESSION: 1. Interval resolution of previously visualized small bowel dilation. Current exam shows no bowel dilation or evidence of obstruction. No focal areas of abnormal enhancement, wall thickening or intraluminal masses. 2. Fluid-filled large bowel. 3. Unchanged marked right renal atrophy with 2.3 cm calculus in the right renal pelvis. 4. Stable age indeterminate compression fracture of the T12 vertebral body. Signed by: Dr. Forrest Sierra M.D. on 04/03/2018 3:04 PM
== END ==
LOC: CT 08:42
PROVIDERS: ATTEND Internal Medicine Gastroenterology
DX: R10.31 Right lower quadrant pain (principal); R10.813 Right lower quadrant abdominal tenderness; K56.600 Partial intestinal obstruction, unspecified as to cause; R19.7 Diarrhea, unspecified; K52.9 Noninfective gastroenteritis and colitis, unspecified; Z99.81 Dependence on supplemental oxygen
CPT/HCPCS: 36415; 74177; 82565; 84520; Q9967

== ENCOUNTER 2018-05-05 12:51 | Inpatient (IN) | payer MEDICARE ==
[~2018-05-05] VITALS: Ht 152.4 cm; Wt 45.2 kg
[~2018-05-05 12:51] MED LIST changes: -IOPAMIDOL 370 MG/ML 200 ML INFUS..BTL INJ ONE; -MESALAMINE; -PREDNISOLONE5 GM PO; -SODIUM CHLORIDE 0.9% 50ML 50 ML ONE
[2018-05-05] MEDS ORDERED: SODIUM CHLORIDE 0.9% 1000ML 1,000 ML IV STA (13:36)
[2018-05-05] MEDS ORDERED: IPRATROPIUM BROMIDE 0.02% 2.5 ML NEB NEB STA (13:36)
[2018-05-05] MEDS ORDERED: ONDANSETRON HCL INJ 2 MG/ML VIAL IV STA (13:36)
[2018-05-05] MEDS ORDERED: METHYLPREDNISOLONE SOD SUCC 125 MG/2ML VIAL IV STA (13:36)
[2018-05-05 13:49] LABS: BASOPHILS % 0.3 % (0.0-1.0); EOSINOPHILS # (AUTO) 0.2 (0.0-0.4); EOSINOPHILS % 1.5 % (0.0-6.0); HEMATOCRIT 51.4 % (34.2-44.1); HEMOGLOBIN 16.8 g/dL (12.0-16.0); LYMPHOCYTES # (AUTO) 0.4 (1.0-3.2); LYMPHOCYTES % 3.4 % (18.0-39.1); MEAN CORPUSCULAR HEMOGLOBIN 30.6 pg (28-32); MEAN CORPUSCULAR HGB CONC 32.7 g/dL (31-35); MEAN CORPUSCULAR VOLUME 93.6 fL (81-99); MONOCYTES # (AUTO) 0.4 (0.2-0.8); MONOCYTES % 3.5 % (4.4-11.3); NEUTROPHILS # (AUTO) 11.2 (2.1-6.9); PLATELET COUNT 281 x10e3/uL (140-360); RED BLOOD COUNT 5.49 x10e6/uL (3.6-5.1); RED CELL DISTRIBUTION WIDTH 15.9 % (11.7-14.4)
[2018-05-05] MEDS ORDERED: METRONIDAZOLE 500MG/NS 100ML 100 ML IV ONE (14:00)
[2018-05-05 14:01] LABS: ALBUMIN 3.8 g/dL (3.5-5.0); ALBUMIN/GLOBULIN RATIO 0.8 (0.8-2.0); ANION GAP 17.7 mmol/L (8-16); CREATININE, SERUM 1.03 mg/dL (0.57-1.11); POTASSIUM 4.7 mmol/L (3.5-5.1)
[2018-05-05 14:15] LABS: ABG PCO2 35 mmHg (41-51); ABG PH 7.38 (7.31-7.41); ABG PO2 97 mmHg (80-105)
[2018-05-05 14:16] LABS: ABG HCO3 21 mmol/L (23-28)
[2018-05-05] MEDS ORDERED: IPRATROPIUM BROMIDE 0.02% 2.5 ML NEB NEB ONE (14:30)
[2018-05-05] MEDS ORDERED: LEVOFLOXACIN 250MG/D5W 50ML 50 ML IV ONE (14:30)
--- NOTE | 2018-05-05 14:36 | Diagnostic Imaging Report ---
Examination: Single AP view of the chest. COMPARISON: Rib series March 28, 2018 INDICATION: Abdominal pain DISCUSSION: Lines/tubes: None. Lungs: Diffuse pulmonary fibrosis. No superimposed consolidation. Pleura: There is no pleural effusion or pneumothorax. Heart and mediastinum: The heart and the mediastinum are unremarkable. Bones and soft tissues: No acute bony abnormalities. IMPRESSION: 1. Diffuse pulmonary fibrosis. Signed by: Dr. Chi Jones M.D. on 05/05/2018 2:31 PM
[2018-05-05 15:59] LABS: INR 0.88; PROTHROMBIN TIME 12.8 seconds (11.9-14.5)
[2018-05-05 16:00] LABS: PARTIAL THROMBOPLASTIN TIME 37.4 seconds (23.8-35.5)
[2018-05-05 16:50] LABS: EOSINOPHILS % (MANUAL) 1 % (0-7); LYMPHOCYTES % (MANUAL) 3 % (19-48); MONOCYTES % (MANUAL) 3 % (3.4-9.0); NEUTROPHILS % (MANUAL) 92 % (40-74); RBC MORPHOLOGY COMMENT NORMAL
[2018-05-05 16:51] LABS: PLATELET ESTIMATE ADEQUATE; PLATELET MORPHOLOGY COMMENT NORMAL
--- NOTE | 2018-05-05 16:54 | Diagnostic Imaging Report ---
EXAMINATION: CT of the abdomen and pelvis with contrast. TECHNIQUE: Helical CT images of the abdomen and pelvis were performed from the lung bases to the lesser trochanters after the intravenous administration of 100 cc of Omnipaque 300 and the oral administration of none. Coronal and sagittal reformatted images were obtained.Dose modulation, iterative reconstruction, and/or weight based adjustment of the mA/kV was utilized to reduce the radiation dose to as low as reasonably achievable. COMPARISON: March 23, 2018 CLINICAL HISTORY:Abdominal pain, nausea and vomiting DISCUSSION: ABDOMEN/PELVIS: LOWER THORAX:Lung base fibrosis. HEPATOBILIARY: No focal hepatic lesions. No intra-or extrahepatic biliary ductal dilation. The gallbladder is normal. SPLEEN: No splenomegaly. PANCREAS: No focal masses or ductal dilatation. ADRENALS: No adrenal nodules. KIDNEYS/URETERS: Severe atrophy of the right kidney with large 2.1 cm calculus in the pelvis. Left kidney unremarkable. PELVIC ORGANS/BLADDER: The bladder is normal. PERITONEUM/RETROPERITONEUM: No free air or fluid. LYMPH NODES: No intra-abdominal, retroperitoneal, pelvic or inguinal lymphadenopathy. VESSELS: Atherosclerotic calcifications. GI TRACT: Decreased fluid filled small bowel with loops now collapsed in the right lower quadrant. No transition point BONES AND SOFT TISSUE: Multilevel lumbar spondylosis T12. Leftward lumbar scoliosis. Left total hip arthroplasty. IMPRESSION: Decreased loops of small bowel distention. No transition point to suggest obstruction. Severe atrophy right kidney with 2 cm calculus right pelvis. Signed by: Dr. Chi Jones M.D. on 05/05/2018 4:51 PM
[2018-05-05] MEDS ORDERED: METRONIDAZOLE 500MG/NS 100ML IV SCH (18:00)
[2018-05-05] MEDS ORDERED: METHYLPREDNISOLONE SOD SUCC 40 MG/ML VIAL IV SCH ×2 (18:00→22:00)
[2018-05-05 18:14] LABS: BILIRUBIN,URINE NEGATIVE (NEGATIVE); CLARITY,URINE SL CLOUDY (CLEAR); COLOR,URINE YELLOW (YELLOW); KETONES,URINE NEGATIVE (NEGATIVE); LEUKOCYTE ESTERASE ,URINE TRACE (NEGATIVE); NITRITE,URINE NEGATIVE (NEGATIVE); PROTEIN,URINE DIPSTICK NEGATIVE (NEGATIVE); URINE UROBILINOGEN 0.2 mg/dL (0.2 - 1)
[2018-05-05 18:19] LABS: EPITHELIAL CELLS,URINE RARE /LPF; WBC,URINE (MAN) 0-5 /HPF (0-5)
[2018-05-05] MEDS: SODIUM CHLORIDE 0.9% 1000ML 1,000 ML IV SCH (18:22)
--- NOTE | 2018-05-05 18:52 | History and Physical ---
An 83-year-old female with a past medical history positive for COPD and Crohn disease came here with shortness of breath and also vomiting, diarrhea and abdominal pain. REVIEW OF SYSTEMS CARDIOVASCULAR: She is not having any chest pain or palpitations. RESPIRATORY: She did complain of shortness of breath. She is feeling better right now. GASTROINTESTINAL: Nausea, vomiting, diarrhea, and abdominal pain. GENITOURINARY: No frequency or dysuria. ALLERGIES: LISTED ON THE CHART. SOCIAL HISTORY: She used to smoke. She quit a few years ago. She does not drink alcohol. PAST MEDICAL HISTORY: COPD and Crohn disease. PHYSICAL EXAMINATION HEART: Shows regular rhythm. Normal S1 and S2 sounds. LUNGS: Clear bilaterally. ABDOMEN: Soft. Nondistended. No visceromegaly. EXTREMITIES: Show no evidence of cyanosis, edema or trauma. FINAL IMPRESSION 1. Chronic obstructive pulmonary disease exacerbation with respiratory failure. 2. Crohn disease exacerbation. 3. Abdominal pain. PLAN OF TREATMENT: We are going to continue with the home medications. We are going to continue with the nebulization treatment. Continue with oxygen. Continue Solu-Medrol. Stool for C. difficile. Continue with Imodium as needed for diarrhea. We are going to consult Dr. Zamora for pulmonary and Dr. Lucas for gastroenterology also. CBC, BMP and chest x-ray has been ordered. Report is pending. She has Crohn disease. She has diarrhea. Job#: [id number] SHAKEEL
[2018-05-05] MEDS ORDERED: ALBUTEROL/IPRATROPIUM 3 ML NEB NEB SCH (19:00)
--- NOTE | 2018-05-05 19:03 | Consultation ---
DATE OF CONSULTATION: May 05, 2018 REASON FOR CONSULTATION: Shortness of breath and history of COPD. HPI: Ms. Altamirano is an 83-year-old female with a history of Crohn disease and history of COPD. Patient follows up with Dr. Gil. She presented with diarrhea for 2 to 3 days and abdominal pain. She lives with caregivers. She reports shortness of breath as well. She uses 4 L oxygen through a nasal cannula. She denies any nausea, vomiting, diarrhea, or focal weakness. REVIEW OF SYSTEMS GENERAL: Denies any fever or chills. HEENT: Denies any head trauma. ENT: Denies any earache or nosebleed. CV: Denies any chest pain. RESPIRATORY: Shortness of breath. GI: Diarrhea. The rest of the review of systems are negative except as in HPI. PAST MEDICAL HISTORY: Crohn disease, COPD, mild to moderate dementia. FAMILY HISTORY/SOCIAL HISTORY: She does not smoke. Does not drink. She smoked for 60+ years. She quit in 2010. PHYSICAL EXAMINATION VITAL SIGNS: Temperature 99.7, pulse of 96, blood pressure 105/64, respiratory rate 18, O2 sat 96%. HEENT: Head atraumatic and normocephalic. NECK: Supple. CHEST: Clear to auscultation bilaterally. No wheezing. No crackles. HEART: S1 and S2 audible. ABDOMEN: Soft and nontender. EXTREMITIES: No clubbing, cyanosis or edema. NEUROLOGIC: Awake and alert. LABS: White count of 12,000, hemoglobin 16 and platelets 281,000. Chemistry; Sodium 139, potassium 4.7, chloride 104, BUN 12, creatinine 1.03. Lactic acid 24.3. Calcium is 11. Alk phos is 315. Total bilirubin 1.3. She underwent a CT of the abdomen and pelvis, which is showing evidence of decreased loops of bowel distention. No transition point. Severe atrophy of the right kidney. Chest x-ray is showing evidence of reticular nodular pattern and fibrosis. ASSESSMENT AND PLAN: Ms. Altamirano is an 83-year-old female. She presented with abdominal pain, diarrhea., abnormal liver function test. Patient has history of chronic obstructive pulmonary disease and chronic hypoxic respiratory failure. Currently, not wheezing. CURRENT PROBLEMS 1. Diarrhea and possible colitis: Patient has a history of Crohn disease. Could be an exacerbation of Crohn's colitis versus infective colitis. I will reduce the dose of steroids. The patient has been started on 40 mg q.6 h. I will start the patient on intravenous Zosyn. 2. Chronic obstructive pulmonary disease: Currently, stable from a pulmonary standpoint. She uses 4 L nasal cannula right now. She is on 40% Ventimask. I will continue the patient on oxygen to keep the O2 sat more than or equal to 90%. 3. The patient's lactic acid was 24.3 suggestive that the patient has sepsis: Intravenous hydration has been given in the emergency room. Discussed with the patient's daughter at bedside. Job#: [id number] VT
[2018-05-05] MEDS ORDERED: IOPAMIDOL 370 MG/ML 200 ML INFUS..BTL INJ ONE (19:44)
[2018-05-05] MEDS ORDERED: SODIUM CHLORIDE 0.9% 50ML 50 ML ONE (19:44)
[2018-05-05 20:28] VITALS: BP 106/61
[2018-05-05] MEDS: LEVALBUTEROL HCL SOLN NEBU 1.25 MG/3 ML NEB INH SCH (20:30)
[2018-05-05 21:30] VITALS: BP 106/61
[2018-05-05 22:00] VITALS: BP 106/61
[2018-05-06] VITALS (7 sets, daily range): BP systolic 90–110; BP diastolic 52–91
[2018-05-06] MEDS: LEVALBUTEROL HCL SOLN NEBU 1.25 MG/3 ML NEB INH SCH ×4 (01:05→19:15)
[2018-05-06] MEDS: METHYLPREDNISOLONE SOD SUCC 40 MG/ML VIAL IV SCH ×3 (02:04→16:21)
[2018-05-06] MEDS: METRONIDAZOLE 500MG/NS 100ML 100 ML IV SCH ×4 (03:41→21:46)
[2018-05-06 04:22] LABS: BASOPHILS % 0.1 % (0.0-1.0); HEMATOCRIT 39.7 % (34.2-44.1); HEMOGLOBIN 12.9 g/dL (12.0-16.0); LYMPHOCYTES # (AUTO) 0.6 (1.0-3.2); LYMPHOCYTES % 6.9 % (18.0-39.1); MEAN CORPUSCULAR HEMOGLOBIN 30.4 pg (28-32); MEAN CORPUSCULAR HGB CONC 32.5 g/dL (31-35); MEAN CORPUSCULAR VOLUME 93.6 fL (81-99); MONOCYTES # (AUTO) 0.1 (0.2-0.8); MONOCYTES % 0.9 % (4.4-11.3); NEUTROPHILS # (AUTO) 7.3 (2.1-6.9); NEUTROPHILS % 91.8 % (38.7-80.0); PLATELET COUNT 231 x10e3/uL (140-360); RED BLOOD COUNT 4.24 x10e6/uL (3.6-5.1); RED CELL DISTRIBUTION WIDTH 15.9 % (11.7-14.4)
[2018-05-06 04:41] LABS: ALANINE AMINOTRANSFERASE 20 IU/L (0-55); ALBUMIN 2.9 g/dL (3.5-5.0); ALBUMIN/GLOBULIN RATIO 0.9 (0.8-2.0); ALKALINE PHOSPHATASE 193 IU/L (40-150); BLOOD UREA NITROGEN 13 mg/dL (7-26); BUN/CREATININE RATIO 16 (6-25); CALCIUM 8.7 mg/dL (8.4-10.2); CARBON DIOXIDE 21 mmol/L (22-29); CHLORIDE 112 mmol/L (98-107); CREATININE, SERUM 0.83 mg/dL (0.57-1.11); EST GLOMERULAR FILTRATION RATE > 60 ML/MIN (60-); GLUCOSE 132 mg/dL (74-118); SODIUM 143 mmol/L (136-145)
[2018-05-06] MEDS: SODIUM CHLORIDE 0.9% 1000ML 1,000 ML IV SCH ×2 (07:18→21:46)
[2018-05-06] MEDS ORDERED: IPRATROPIUM/ALBUTEROL SULFATE 4 GM INH INH PRN (17:45)
[2018-05-06] MEDS: LEVOFLOXACIN 500MG/D5W 100ML 100 ML IV SCH (17:59)
[2018-05-06] MEDS ORDERED: METRONIDAZOLE 500MG/NS 100ML 100 ML IV SCH (18:12)
[2018-05-06] MEDS ORDERED: DIPHENOXYLATE/ATROPINE TAB PO PRN (18:15)
[2018-05-06] MEDS: SALMETEROL/FLUTICASONE 250/50 INH SCH (19:00)
--- NOTE | 2018-05-06 19:17 | Progress Note ---
DATE: INTERNAL MEDICINE PROGRESS NOTE SUBJECTIVE: She is complaining of right lower quadrant abdominal pain and diarrhea. PHYSICAL EXAM: VITAL SIGNS: Blood pressure 95/80. Temperature 97.8. Heart rate 74 per minute. Respiratory rate is 20 per minute. Oxygen saturation 94%. HEART: Shows regular rhythm. Normal S1 and S2 sounds. LUNGS: Are clear bilaterally. ABDOMEN: Soft. She has some mild tenderness in the right lower quadrant. EXTREMITIES: Show no evidence of cyanosis, edema or trauma. LAB: On the BMP: Sodium 143, potassium 4.0, chloride 112, CO2 21, BUN 13, creatinine 0.83, glucose 132. On the CBC: White blood count 7.98, hemoglobin 12.9, hematocrit 39.7, platelet count 231,000. PT 12.8, PTT 37.4, INR 0.88. AST 22, ALT 20, total bilirubin 0.6, alkaline phosphatase 183. FINAL IMPRESSION: 1. Crohn disease exacerbation. 2. Abdominal pain most likely secondary to Crohn disease exacerbation. 3. Acute diarrhea. 4. Chronic obstructive pulmonary disease exacerbation. PLAN OF TREATMENT: We are going to consult Dr. Lucas for gastroenterology, Dr. Zamora for pulmonary. Patient will get also stool for C difficile and culture. Continue on Xopenex q.6 hours. Levaquin 500 mg IV daily. Metronidazole 500 mg IV q.6 hours. Normal saline 75 mL an hour. Solu-Medrol 20 mg IV q.8 hours. We are going to send the stool for C difficile. We are going to start her on Ultracet 1 tablet every 4 hours as needed for pain. Job#: [id number] EV
[2018-05-06] MEDS: GABAPENTIN 400 MG CAP PO SCH (21:46)
--- NOTE | 2018-05-06 22:08 | Consultation ---
DATE OF CONSULTATION: May 06, 2018 HISTORY: This is 83-year-old [place] lady who has history of Crohn's disease, apparently followed by my associate, Dr. Lucas, was admitted to the hospital because of problems with abdominal pain as well as diarrhea. Patient has some nausea and vomiting also along with this problem. Her workup so far revealed that her white blood cell count was high on admission with WBC of 12.35 and she has lactic acid of 24, and her CAT scan of the abdomen and pelvis shows loops of small bowel distention, but there is no clear obstruction. OTHER MEDICAL PROBLEMS: Significant for history of COPD, history of Crohn's as mentioned before. ALLERGIES: PENICILLIN. SOCIAL HISTORY: Denies any alcohol use. FAMILY HISTORY: Noncontributory. REVIEW OF SYSTEMS: Denies any chest pain. No shortness of breath. Denies any dysphagia or odynophagia. Denies any dysuria or hematuria or any kind of syncopal episodes. PHYSICAL EXAMINATION: GENERAL: Patient is awake, alert, appeared to be stable, not in acute distress at this point. VITAL SIGNS: Afebrile currently with stable vital signs. HEAD, EYES, EARS, NOSE, AND THROAT: Normocephalic, atraumatic. Sclerae are anicteric. NECK: Supple. HEART: Regular. LUNGS: Clear. ABDOMEN: Soft. There is tenderness diffusely. Abdomen is somewhat distended. . EXTREMITIES: No clubbing. LAB VALUES: Significant for WBC of 12.35 on admission last night, this morning down to 7.8; hemoglobin of 12.9. BUN of 13, creatinine of 0.83. Alk phos is 193. CAT scan as mentioned before. IMPRESSION: 1. Abdominal pain with diarrhea. Patient has some nausea and vomiting, possibly Crohn's exacerbation. 2. Chronic obstructive pulmonary disease. RECOMMENDATIONS: Continue antibiotic at this point. stool sample. Will agree with steroid, okay at this point. Follow labs and clinically. Clear liquid diet only for now. Job#: [id number]
[2018-05-07] VITALS (8 sets, daily range): BP systolic 107–129; BP diastolic 58–69
[2018-05-07] MEDS ORDERED: METHYLPREDNISOLONE SOD SUCC 40 MG/ML VIAL IV SCH (02:00)
[2018-05-07] MEDS: METRONIDAZOLE 500MG/NS 100ML 100 ML IV SCH ×4 (03:45→22:25)
--- NOTE | 2018-05-07 06:47 | Diagnostic Imaging Report ---
ABDOMEN-1VIEW (KUB) Clinical history: Abdominal pain Technique: AP view abdomen Comparison: CT from 05/05/2018 Findings: Gas is seen predominantly in nondilated bowel loops. Large calculus seen projecting over the atrophic right kidney on CT. Partially imaged left hip arthroplasty and severe degenerative changes. Atherosclerotic calcifications. Impression: Grossly nonobstructive bowel gas pattern on single provided view. Consider follow-up with multiple. Signed by: Dr Ely Villanueva MD on 05/07/2018 6:44 AM
[2018-05-07] MEDS: SALMETEROL/FLUTICASONE 250/50 INH SCH ×2 (07:00→19:32)
[2018-05-07] MEDS ORDERED: OYST-CAL-D 500MG TABLET PO SCH (08:00)
[2018-05-07] MEDS: OYST-CAL-D 500MG TABLET PO SCH ×2 (08:00→17:00)
[2018-05-07] MEDS: LEVALBUTEROL HCL SOLN NEBU 1.25 MG/3 ML NEB INH SCH ×4 (08:18→19:32)
[2018-05-07] MEDS: MAGNESIUM OXIDE 400 MG TAB PO SCH (08:56)
[2018-05-07] MEDS: GABAPENTIN 400 MG CAP PO SCH ×3 (08:56→20:10)
[2018-05-07] MEDS: ASCORBIC ACID 500 MG TAB PO SCH (08:56)
[2018-05-07] MEDS: CHOLECALCIFEROL 1,000 UNIT TAB PO SCH (08:56)
[2018-05-07] MEDS: SOLIFENACIN SUCCINATE 5 MG TAB PO SCH (08:56)
[2018-05-07] MEDS: SODIUM CHLORIDE 0.9% 1000ML 1,000 ML IV SCH ×3 (08:56→17:36)
[2018-05-07] MEDS: FAMOTIDINE 20 MG TAB PO SCH ×2 (08:56→17:00)
[2018-05-07] MEDS: FERROUS SULFATE 325 MG TAB PO SCH (08:56)
[2018-05-07] MEDS ORDERED: CHOLESTYRAMINE 4 GM PACKET PO SCH (09:00)
[2018-05-07] MEDS ORDERED: NON-FORMULARY MEDICATION (Ranitidine Hcl 150 MG) PO SCH (09:00)
[2018-05-07] MEDS ORDERED: IRON 27 MG PO SCH (09:00)
[2018-05-07] MEDS ORDERED: METHYLPREDNISOLONE 4 MG TAB PO SCH (09:00)
[2018-05-07] MEDS ORDERED: SALMETEROL/FLUTICASONE 250/50 INH SCH (09:00)
[2018-05-07] MEDS: CALCITONIN SALMON SCH (09:00)
[2018-05-07] MEDS ORDERED: NON-FORMULARY MEDICATION (Ascorbic Acid (Vitamin C) 1,000 MG) PO SCH (09:00)
[2018-05-07] MEDS: METHYLPREDNISOLONE SOD SUCC 40 MG/ML VIAL IV SCH ×2 (10:00→17:48)
[2018-05-07] MEDS: MESALAMINE 400 MG CAP PO SCH ×3 (12:00→20:10)
[2018-05-07] MEDS: LOPERAMIDE HCL 2 MG CAP PO PRN ×2 (14:00→17:40)
[2018-05-07] MEDS: CHOLESTYRAMINE 4 GM PACKET PO SCH ×2 (14:00→22:30)
[2018-05-07] MEDS: BALSAM PERU/CASTOR OIL 60 GM OINT...G. TP SCH (17:00)
[2018-05-07] MEDS: LEVOFLOXACIN 500MG/D5W 100ML 100 ML IV SCH (17:49)
--- NOTE | 2018-05-07 18:54 | Progress Note ---
DATE: INTERNAL MEDICINE PROGRESS NOTE SUBJECTIVE: Patient is doing well. No significant complaint. PHYSICAL EXAMINATION HEART: Shows regular rhythm. Normal S1 and S2 sounds. LUNGS: Clear bilaterally. ABDOMEN: Soft. Minimal tenderness in the right flank. EXTREMITIES: Show no evidence of cyanosis or trauma. VITALS: Blood pressure 114/61, temperature 96.8, heart rate 60 per minute, respiratory rate 18 per minute, oxygen saturation 100%. On the BMP, sodium 143, potassium 4, chloride 112, CO2 21, BUN 13, creatinine 0.83, glucose 132. On the CBC, white blood count 7.98, hemoglobin 12.9, hematocrit 39.7, and platelet count 231,000. PT 12.8, PTT 37.4 and INR 0.88. AST 22, ALT 20, total bilirubin 0.6, alkaline phosphatase 183. FINAL IMPRESSION 1. Chronic obstructive pulmonary disease exacerbation. 2. Crohn disease exacerbation. 3. [id number] hypoxic respiratory failure. PLAN OF TREATMENT: Continue Xopenex q.6 h. Advair twice a day. Levaquin 500 mg IV daily. Metronidazole 500 mg IV q.6 h. Continue cholecalciferol 1000 units daily. Pepcid 20 mg twice a day. Methylprednisolone 20 mg IV every 8 hours. Continue gabapentin 400 mg 3 times a day. Ferrous sulfate 325 mg daily. Mesalamine 800 mg 3 times a day. Calcitonin 200 mg daily. VESIcare 5 mg daily. Loperamide 2 mg q.4 h. as needed. Calcium carbonate 500 mg twice a day. Vitamin C 1000 mg daily. Ultracet 1 tablet q.6 h. as needed. Questran 3 times a day. All questions have been answered. Job#: [id number] SHAKEEL
[2018-05-08] VITALS (8 sets, daily range): BP systolic 105–141; BP diastolic 61–85
[2018-05-08] MEDS: SODIUM CHLORIDE 0.9% 1000ML 1,000 ML IV SCH ×3 (00:16→20:16)
[2018-05-08] MEDS: LEVALBUTEROL HCL SOLN NEBU 1.25 MG/3 ML NEB INH SCH ×4 (01:45→19:22)
[2018-05-08] MEDS: METHYLPREDNISOLONE SOD SUCC 40 MG/ML VIAL IV SCH ×3 (02:40→17:43)
[2018-05-08] MEDS: METRONIDAZOLE 500MG/NS 100ML 100 ML IV SCH ×4 (05:19→21:13)
[2018-05-08] MEDS: SALMETEROL/FLUTICASONE 250/50 INH SCH ×2 (07:00→19:22)
[2018-05-08] MEDS: LOPERAMIDE HCL 2 MG CAP PO PRN ×2 (07:50→14:00)
[2018-05-08] MEDS: OYST-CAL-D 500MG TABLET PO SCH ×2 (08:00→17:00)
[2018-05-08] MEDS: FERROUS SULFATE 325 MG TAB PO SCH (08:49)
[2018-05-08] MEDS: FAMOTIDINE 20 MG TAB PO SCH ×2 (08:49→17:00)
[2018-05-08] MEDS: MAGNESIUM OXIDE 400 MG TAB PO SCH (08:49)
[2018-05-08] MEDS: MESALAMINE 400 MG CAP PO SCH ×3 (08:49→20:50)
[2018-05-08] MEDS: GABAPENTIN 400 MG CAP PO SCH ×3 (08:49→20:50)
[2018-05-08] MEDS: CALCITONIN SALMON SCH (08:49)
[2018-05-08] MEDS: ASCORBIC ACID 500 MG TAB PO SCH (08:49)
[2018-05-08] MEDS: SOLIFENACIN SUCCINATE 5 MG TAB PO SCH (08:49)
[2018-05-08] MEDS: BALSAM PERU/CASTOR OIL 60 GM OINT...G. TP SCH ×2 (08:50→17:00)
[2018-05-08] MEDS: CHOLECALCIFEROL 1,000 UNIT TAB PO SCH (08:50)
[2018-05-08] MEDS: CHOLESTYRAMINE 4 GM PACKET PO SCH ×3 (10:00→22:26)
--- NOTE | 2018-05-08 11:04 | Progress Note ---
DATE: May 08, 2018 INTERNAL MEDICINE PROGRESS NOTE SUBJECTIVE: She is doing better now. The diarrhea is slowly going away. PHYSICAL EXAMINATION VITAL SIGNS: Blood pressure 132/73. Temperature 99.1. Heart rate 75 per minute. Respiratory rate 18 per minute. Oxygen saturation 95%. HEART: Regular rhythm. Normal S1 and S2 sounds. LUNGS: Clear bilaterally. ABDOMEN: Soft. EXTREMITIES: No evidence of cyanosis, edema or trauma. LABS: BMP showed sodium 143, potassium 4.0, chloride 112, CO2 21, BUN 13, creatinine 0.83. Glucose 132. On the CBC, white blood count 7.99, hemoglobin 12.9, hematocrit 39.7, platelet count 231,000. PT 12.8, INR 0.88, PTT 37.4. AST 22, ALT 20, total bilirubin 0.6, alkaline phosphatase 193. FINAL IMPRESSION 1. Crohn disease exacerbation. 2. Acute diarrhea secondary to Crohn disease. 3. Chronic obstructive pulmonary disease exacerbation. 4. Npijo-rq-vtvwyin respiratory failure secondary to chronic obstructive pulmonary disease. PLAN OF TREATMENT: We are going to continue with Xopenex q.6 h., Advair twice a day, Levaquin 500 mg IV daily, metronidazole 500 mg IV q.6 h., cholecalciferol 1,000 units daily, Pepcid 20 mg twice a day, Solu-Medrol 20 mg q.8 h., Balsam Pravin and castor oil twice a day to affected area, gabapentin 400 mg 3 times a day, ferrous sulfate 325 mg daily. Continue calcitonin 200 units international daily, magnesium oxide 400 mg daily, VESIcare 5 mg daily, Imodium 2 mg q.4 h. as needed, calcium carbonate 500 mg twice a day, vitamin C 1,000 mg daily, tramadol with Tylenol q.6 h. as needed, Questran 3 times a day. I discussed the case with the patient, with the family member at the bedside, with the nurses also. Time spent was 45 minutes. Job#: [id number]
[2018-05-08] MEDS: TRAMADOL/APAP 37.5MG-325MG TAB PO PRN (14:00)
[2018-05-08] MEDS: LEVOFLOXACIN 500MG/D5W 100ML 100 ML IV SCH (17:43)
[2018-05-09 00:15] VITALS: BP 125/67
[2018-05-09] MEDS: LEVALBUTEROL HCL SOLN NEBU 1.25 MG/3 ML NEB INH SCH ×4 (01:10→19:30)
[2018-05-09] MEDS: METHYLPREDNISOLONE SOD SUCC 40 MG/ML VIAL IV SCH ×3 (01:47→17:50)
[2018-05-09] MEDS: METRONIDAZOLE 500MG/NS 100ML 100 ML IV SCH ×4 (04:25→21:31)
[2018-05-09 04:30] VITALS: BP 140/85
[2018-05-09 07:30] VITALS: BP 155/80
[2018-05-09] MEDS: SALMETEROL/FLUTICASONE 250/50 INH SCH ×2 (07:49→19:30)
[2018-05-09] MEDS: BALSAM PERU/CASTOR OIL 60 GM OINT...G. TP SCH ×2 (09:00→17:50)
[2018-05-09] MEDS: GABAPENTIN 400 MG CAP PO SCH ×3 (09:45→21:30)
[2018-05-09] MEDS: MESALAMINE 400 MG CAP PO SCH ×3 (09:45→21:30)
[2018-05-09] MEDS: MAGNESIUM OXIDE 400 MG TAB PO SCH (09:45)
[2018-05-09] MEDS: ASCORBIC ACID 500 MG TAB PO SCH (09:45)
[2018-05-09] MEDS: OYST-CAL-D 500MG TABLET PO SCH ×2 (09:45→17:56)
[2018-05-09] MEDS: FERROUS SULFATE 325 MG TAB PO SCH (09:45)
[2018-05-09] MEDS: CALCITONIN SALMON SCH (09:45)
[2018-05-09] MEDS: CHOLECALCIFEROL 1,000 UNIT TAB PO SCH (09:45)
[2018-05-09] MEDS: FAMOTIDINE 20 MG TAB PO SCH ×2 (09:45→17:56)
[2018-05-09] MEDS: SOLIFENACIN SUCCINATE 5 MG TAB PO SCH (09:45)
[2018-05-09] MEDS: TRAMADOL/APAP 37.5MG-325MG TAB PO PRN ×2 (11:10→23:52)
[2018-05-09 11:43] VITALS: BP 156/79
[2018-05-09] MEDS: CHOLESTYRAMINE 4 GM PACKET PO SCH ×3 (12:15→21:31)
[2018-05-09 16:22] VITALS: BP 145/79
--- NOTE | 2018-05-09 16:33 | Progress Note ---
DATE: INTERNAL MEDICINE PROGRESS NOTE SUBJECTIVE: She is still having diarrhea but less than before. PHYSICAL EXAM: VITAL SIGNS: Blood pressure 156/79. Temperature 97.5. Heart rate 67 per minute. Respiratory rate 16 per minute. Oxygen saturation 100%. HEART: Shows regular rhythm. Normal S1 and S2 sounds. LUNGS: Clear bilaterally. ABDOMEN: Soft. Minimal tenderness on the right lower quadrant area. BLOOD WORK: We have a BMP: Sodium 143, potassium 4.0, chloride 112, CO2 21, BUN 13, creatinine 0.83, glucose 132. On the CBC: White blood count 7.99, hemoglobin 12.9, hematocrit 39.7, platelet count 231,000. PT 12.8, PTT 37.4, INR 0.88. AST 22, ALT 20, total bilirubin 0.6, alkaline phosphatase 193. FINAL IMPRESSION: 1. Crohn disease exacerbation. 2. Chronic obstructive pulmonary disease. 3. Colitis. 4. Chronic respiratory failure. 5. Hypertension. PLAN OF TREATMENT: We are going to continue Xopenex q.6 hours. Continue Advair twice a day. Levaquin 500 mg IV daily. Metronidazole 500 mg IV q. 6 hours. Cholecalciferol 1000 units daily. Pepcid 20 mg twice a day. Solu-Medrol 20 mg IV q.8 hours. Balsam of Pravin castor oil twice a day. Gabapentin 400 mg 3 times a day. Ferrous sulfate 325 mg daily. Mesalamine 800 mg 3 times a day. Calcitonin 200 units daily. Magnesium oxide 400 mg daily. VESIcare 5 mg daily. Lomotil 2 mg q.4 hours as needed for diarrhea. Calcium carbonate 500 mg twice a day. Vitamin C 1000 mg daily. Ultracet q.6 hours. Questran 4 grams 3 times a day. This weekend Dr. Blackwell will cover for me until May 12. Job#: [id number] EV
[2018-05-09] MEDS: LEVOFLOXACIN 500MG/D5W 100ML 100 ML IV SCH (17:50)
[2018-05-09] MEDS: SODIUM CHLORIDE 0.9% 1000ML 1,000 ML IV SCH (18:54)
[2018-05-09 20:11] VITALS: BP 151/88
[2018-05-10] VITALS (7 sets, daily range): BP systolic 122–153; BP diastolic 65–88
[2018-05-10] MEDS: LEVALBUTEROL HCL SOLN NEBU 1.25 MG/3 ML NEB INH SCH ×4 (01:25→19:00)
[2018-05-10 05:08] LABS: BASOPHILS % 0.2 % (0.0-1.0); EOSINOPHILS % 0.2 % (0.0-6.0); HEMATOCRIT 37.9 % (34.2-44.1); HEMOGLOBIN 12.3 g/dL (12.0-16.0); LYMPHOCYTES # (AUTO) 0.6 (1.0-3.2); LYMPHOCYTES % 10.8 % (18.0-39.1); MEAN CORPUSCULAR HGB CONC 32.5 g/dL (31-35); MEAN CORPUSCULAR VOLUME 92.4 fL (81-99); MONOCYTES # (AUTO) 0.6 (0.2-0.8); MONOCYTES % 10.6 % (4.4-11.3); NEUTROPHILS # (AUTO) 4.5 (2.1-6.9); NEUTROPHILS % 77.2 % (38.7-80.0); PLATELET COUNT 218 x10e3/uL (140-360)
[2018-05-10] MEDS: METRONIDAZOLE 500MG/NS 100ML 100 ML IV SCH ×4 (05:27→21:54)
[2018-05-10 05:30] LABS: ALANINE AMINOTRANSFERASE 20 IU/L (0-55); ALBUMIN 2.9 g/dL (3.5-5.0); ALKALINE PHOSPHATASE 133 IU/L (40-150); ANION GAP 11.9 mmol/L (8-16); BLOOD UREA NITROGEN 6 mg/dL (7-26); BUN/CREATININE RATIO 9 (6-25); CALCIUM 8.8 mg/dL (8.4-10.2); CARBON DIOXIDE 26 mmol/L (22-29); CHLORIDE 112 mmol/L (98-107); EST GLOMERULAR FILTRATION RATE > 60 ML/MIN (60-); GLUCOSE 98 mg/dL (74-118); POTASSIUM 3.9 mmol/L (3.5-5.1); SODIUM 146 mmol/L (136-145)
[2018-05-10] MEDS: MAGNESIUM OXIDE 400 MG TAB PO SCH (08:42)
[2018-05-10] MEDS: MESALAMINE 400 MG CAP PO SCH ×3 (08:42→21:53)
[2018-05-10] MEDS: OYST-CAL-D 500MG TABLET PO SCH ×2 (08:42→17:07)
[2018-05-10] MEDS: FERROUS SULFATE 325 MG TAB PO SCH (08:42)
[2018-05-10] MEDS: ASCORBIC ACID 500 MG TAB PO SCH (08:45)
[2018-05-10] MEDS: FAMOTIDINE 20 MG TAB PO SCH ×2 (08:45→17:07)
[2018-05-10] MEDS: CHOLECALCIFEROL 1,000 UNIT TAB PO SCH (08:45)
[2018-05-10] MEDS: SOLIFENACIN SUCCINATE 5 MG TAB PO SCH (08:45)
[2018-05-10] MEDS: PREDNISONE 20 MG TAB PO SCH (08:45)
[2018-05-10] MEDS: GABAPENTIN 400 MG CAP PO SCH ×3 (08:45→21:53)
[2018-05-10] MEDS: BALSAM PERU/CASTOR OIL 60 GM OINT...G. TP SCH ×2 (09:00→17:07)
[2018-05-10] MEDS: CALCITONIN SALMON SCH (09:00)
[2018-05-10] MEDS: CHOLESTYRAMINE 4 GM PACKET PO SCH ×3 (09:30→21:54)
[2018-05-10] MEDS: SALMETEROL/FLUTICASONE 250/50 INH SCH ×2 (13:45→19:00)
--- NOTE | 2018-05-10 15:04 | Diagnostic Imaging Report ---
EXAM: XR CHEST 1 VIEW DATE: 05/10/2018 1:30 PM INDICATION: Sepsis COMPARISON: 05/05/2018 radiograph FINDINGS: Lines and Tubes: None Heart and Mediastinum: Enlarged. Vascular calcifications. Lungs and Pleura: Mild to moderate edema with superimposed opacity left lung base. Findings progressed since previous study. Bones and Soft Tissues: No acute findings. IMPRESSION: 1. Pulmonary edema with superimposed left basilar atelectasis versus pneumonia. Signed by: Dr. Juaquin Connor MD on 05/10/2018 3:01 PM
[2018-05-10] MEDS: LEVOFLOXACIN 500MG/D5W 100ML 100 ML IV SCH (18:11)
[2018-05-11 00:10] VITALS: BP 143/73
[2018-05-11] MEDS: LEVALBUTEROL HCL SOLN NEBU 1.25 MG/3 ML NEB INH SCH ×4 (01:55→18:55)
[2018-05-11] MEDS: TRAMADOL/APAP 37.5MG-325MG TAB PO PRN ×2 (02:14→15:02)
[2018-05-11] MEDS: METRONIDAZOLE 500MG/NS 100ML 100 ML IV SCH ×4 (03:27→20:37)
[2018-05-11 04:45] LABS: BASOPHILS % 0.3 % (0.0-1.0); EOSINOPHILS # (AUTO) 0.2 (0.0-0.4); EOSINOPHILS % 2.8 % (0.0-6.0); HEMATOCRIT 39.1 % (34.2-44.1); HEMOGLOBIN 12.9 g/dL (12.0-16.0); LYMPHOCYTES # (AUTO) 0.9 (1.0-3.2); LYMPHOCYTES % 12.9 % (18.0-39.1); MEAN CORPUSCULAR HEMOGLOBIN 30.6 pg (28-32); MEAN CORPUSCULAR VOLUME 92.7 fL (81-99); MONOCYTES # (AUTO) 0.6 (0.2-0.8); MONOCYTES % 8.8 % (4.4-11.3); NEUTROPHILS % 74.2 % (38.7-80.0); PLATELET COUNT 224 x10e3/uL (140-360); RED BLOOD COUNT 4.22 x10e6/uL (3.6-5.1)
[2018-05-11 05:07] VITALS: BP 119/75
[2018-05-11 05:12] LABS: ANION GAP 11.4 mmol/L (8-16); BLOOD UREA NITROGEN 6 mg/dL (7-26); BUN/CREATININE RATIO 9 (6-25); CALCIUM 8.8 mg/dL (8.4-10.2); CARBON DIOXIDE 27 mmol/L (22-29); CHLORIDE 108 mmol/L (98-107); EST GLOMERULAR FILTRATION RATE > 60 ML/MIN (60-); GLUCOSE 91 mg/dL (74-118); POTASSIUM 3.4 mmol/L (3.5-5.1); SODIUM 143 mmol/L (136-145)
[2018-05-11] MEDS: SALMETEROL/FLUTICASONE 250/50 INH SCH ×2 (07:00→18:55)
[2018-05-11 08:04] VITALS: BP 132/78
[2018-05-11] MEDS: CALCITONIN SALMON SCH (09:00)
[2018-05-11] MEDS: FERROUS SULFATE 325 MG TAB PO SCH (09:05)
[2018-05-11] MEDS: MESALAMINE 400 MG CAP PO SCH ×3 (09:05→20:37)
[2018-05-11] MEDS: BALSAM PERU/CASTOR OIL 60 GM OINT...G. TP SCH ×2 (09:05→16:45)
[2018-05-11] MEDS: CHOLECALCIFEROL 1,000 UNIT TAB PO SCH (09:05)
[2018-05-11] MEDS: FAMOTIDINE 20 MG TAB PO SCH ×2 (09:05→16:45)
[2018-05-11] MEDS: OYST-CAL-D 500MG TABLET PO SCH ×2 (09:05→16:45)
[2018-05-11] MEDS: CHOLESTYRAMINE 4 GM PACKET PO SCH ×3 (09:05→20:37)
[2018-05-11] MEDS: MAGNESIUM OXIDE 400 MG TAB PO SCH (09:05)
[2018-05-11] MEDS: PREDNISONE 20 MG TAB PO SCH (09:05)
[2018-05-11] MEDS: GABAPENTIN 400 MG CAP PO SCH ×3 (09:05→20:37)
[2018-05-11] MEDS: ASCORBIC ACID 500 MG TAB PO SCH (09:05)
[2018-05-11] MEDS: SOLIFENACIN SUCCINATE 5 MG TAB PO SCH (09:05)
[2018-05-11 11:50] VITALS: BP 128/76
[2018-05-11] MEDS ORDERED: POTASSIUM CHLORIDE 10 MEQ TABCR PO ONE (12:30)
[2018-05-11 16:04] VITALS: BP 121/69
[2018-05-11] MEDS: LEVOFLOXACIN 500MG/D5W 100ML 100 ML IV SCH (18:08)
[2018-05-11 20:00] VITALS: BP 109/72
[2018-05-12] VITALS (9 sets, daily range): BP systolic 109–133; BP diastolic 57–75
[2018-05-12] MEDS: LEVALBUTEROL HCL SOLN NEBU 1.25 MG/3 ML NEB INH SCH ×4 (01:50→20:16)
[2018-05-12] MEDS: METRONIDAZOLE 500MG/NS 100ML 100 ML IV SCH ×4 (04:24→21:31)
[2018-05-12 04:45] LABS: BASOPHILS % 0.2 % (0.0-1.0); EOSINOPHILS # (AUTO) 0.1 (0.0-0.4); EOSINOPHILS % 0.7 % (0.0-6.0); HEMATOCRIT 38.2 % (34.2-44.1); HEMOGLOBIN 12.7 g/dL (12.0-16.0); LYMPHOCYTES # (AUTO) 0.7 (1.0-3.2); LYMPHOCYTES % 8.1 % (18.0-39.1); MEAN CORPUSCULAR HEMOGLOBIN 30.4 pg (28-32); MEAN CORPUSCULAR HGB CONC 33.2 g/dL (31-35); MEAN CORPUSCULAR VOLUME 91.4 fL (81-99); MONOCYTES # (AUTO) 0.6 (0.2-0.8); MONOCYTES % 6.9 % (4.4-11.3); NEUTROPHILS # (AUTO) 6.9 (2.1-6.9); NEUTROPHILS % 82.8 % (38.7-80.0); PLATELET COUNT 225 x10e3/uL (140-360); RED BLOOD COUNT 4.18 x10e6/uL (3.6-5.1)
[2018-05-12 05:07] LABS: ANION GAP 10.8 mmol/L (8-16); BLOOD UREA NITROGEN 9 mg/dL (7-26); BUN/CREATININE RATIO 13 (6-25); CALCIUM 8.7 mg/dL (8.4-10.2); CARBON DIOXIDE 26 mmol/L (22-29); CHLORIDE 107 mmol/L (98-107); CREATININE, SERUM 0.72 mg/dL (0.57-1.11); EST GLOMERULAR FILTRATION RATE > 60 ML/MIN (60-); GLUCOSE 95 mg/dL (74-118); POTASSIUM 3.8 mmol/L (3.5-5.1); SODIUM 140 mmol/L (136-145)
[2018-05-12] MEDS: SALMETEROL/FLUTICASONE 250/50 INH SCH ×2 (07:35→20:14)
[2018-05-12] MEDS: OYST-CAL-D 500MG TABLET PO SCH ×2 (08:00→17:00)
[2018-05-12] MEDS: LOPERAMIDE HCL 2 MG CAP PO PRN ×2 (08:30→16:15)
[2018-05-12] MEDS: PREDNISONE 20 MG TAB PO SCH (09:00)
[2018-05-12] MEDS: CALCITONIN SALMON SCH (09:00)
[2018-05-12] MEDS: CHOLECALCIFEROL 1,000 UNIT TAB PO SCH (09:00)
[2018-05-12] MEDS: MAGNESIUM OXIDE 400 MG TAB PO SCH (09:00)
[2018-05-12] MEDS: FERROUS SULFATE 325 MG TAB PO SCH (09:00)
[2018-05-12] MEDS: BALSAM PERU/CASTOR OIL 60 GM OINT...G. TP SCH ×2 (09:00→17:00)
[2018-05-12] MEDS: FAMOTIDINE 20 MG TAB PO SCH ×2 (09:00→17:00)
[2018-05-12] MEDS: GABAPENTIN 400 MG CAP PO SCH ×3 (09:00→21:31)
[2018-05-12] MEDS: SOLIFENACIN SUCCINATE 5 MG TAB PO SCH (09:00)
[2018-05-12] MEDS: MESALAMINE 400 MG CAP PO SCH ×3 (09:00→21:31)
[2018-05-12] MEDS: ASCORBIC ACID 500 MG TAB PO SCH (09:00)
[2018-05-12] MEDS: CHOLESTYRAMINE 4 GM PACKET PO SCH ×3 (09:41→21:31)
[2018-05-12] MEDS: LEVOFLOXACIN 500MG/D5W 100ML 100 ML IV SCH (17:28)
--- NOTE | 2018-05-12 18:30 | Discharge Summary ---
HISTORY OF PRESENT ILLNESS: Patient is an 83-year-old female who has a past medical history positive for COPD, history of Crohn disease also. Came with shortness of breath and came also with COPD exacerbation. Patient was started on Xopenex, Solu-Medrol, mesalamine, metronidazole. She was given also Imodium. She was given Questran. A stool for C difficile came back negative. Patient is going home today. She has been discharged also by Dr. Kimberlee Lucas, which is the merchandising consultant. She has been seeing Dr. Zamora, worship leader, also. PHYSICAL EXAM: HEART: Shows regular rhythm. Normal S1 and S2 sounds. LUNGS: Clear bilaterally. ABDOMEN: Soft. EXTREMITIES: Show no evidence of cyanosis, edema or trauma. VITAL SIGNS: Blood pressure 116/57, temperature 97.7, heart rate 77 per minute, respiratory rate 18 per minute, oxygen saturation 98%. LABORATORY STUDIES: We have a BMP: Sodium 140, potassium 3.8, chloride 107, CO2 26, BUN 9, creatinine 0.72, glucose 95. On the CBC: White blood count 8.30, hemoglobin 12.7, hematocrit 38.2, platelet count 255,000. PT 12.8, PTT 37.4, INR 0.88. AST is 17, ALT 20, total bilirubin 0.4, alkaline phosphatase 133. FINAL IMPRESSIONS: 1. Chronic obstructive pulmonary disease exacerbation. 2. Crohn disease exacerbation also. 3. Neuropathy. 4. Overactive bladder. PLAN OF TREATMENT: Continue Xopenex metered-dose inhaler 2 puffs every 4 hours as needed for shortness of breath. Continue Symbicort 160/4.5 one inhalation twice a day. Continue with gabapentin 400 mg 3 times a day. Ferrous sulfate 325 mg daily. Continue with VESIcare 5 mg daily. Questran 3 times a day. Ascorbic acid 1000 mg daily. Ultracet 1 tablet q.6 hours as needed. Mesalamine 800 mg 3 times a day. Continue with cholecalciferol 1000 units daily. Pepcid 20 mg twice a day. Prednisone 20 mg daily to be weaned down as per Dr. Lucas's instructions. Follow up with me in a week. Follow up with Dr. Lucas in 2 weeks. EMILIE GAMA, MD Job#: [id number] EV
[2018-05-13] VITALS: BP 126/59
[2018-05-13 00:36] VITALS: BP 126/69
[2018-05-13] MEDS: LEVALBUTEROL HCL SOLN NEBU 1.25 MG/3 ML NEB INH SCH ×2 (00:40→07:15)
[2018-05-13 06:45] VITALS: BP 108/56
[2018-05-13 06:46] VITALS: BP 108/56
[2018-05-13] MEDS ORDERED: MESALAMINE (07:08)
[2018-05-13] MEDS ORDERED: PREDNISOLONE5 GM PO (07:10)
[2018-05-13] MEDS: SALMETEROL/FLUTICASONE 250/50 INH SCH (07:20)
[2018-05-13 07:52] VITALS: BP 108/56
[2018-05-13] MEDS: OYST-CAL-D 500MG TABLET PO SCH (08:00)
[2018-05-13] MEDS: MAGNESIUM OXIDE 400 MG TAB PO SCH (08:03)
[2018-05-13] MEDS: CALCITONIN SALMON SCH (08:03)
[2018-05-13] MEDS: FERROUS SULFATE 325 MG TAB PO SCH (08:03)
[2018-05-13] MEDS: FAMOTIDINE 20 MG TAB PO SCH (08:03)
[2018-05-13] MEDS: MESALAMINE 400 MG CAP PO SCH (08:03)
[2018-05-13] MEDS: GABAPENTIN 400 MG CAP PO SCH (08:03)
[2018-05-13] MEDS: SOLIFENACIN SUCCINATE 5 MG TAB PO SCH (08:03)
[2018-05-13] MEDS: PREDNISONE 20 MG TAB PO SCH (08:03)
[2018-05-13] MEDS: CHOLECALCIFEROL 1,000 UNIT TAB PO SCH (08:04)
[2018-05-13] MEDS: ASCORBIC ACID 500 MG TAB PO SCH (08:04)
[2018-05-13] MEDS: BALSAM PERU/CASTOR OIL 60 GM OINT...G. TP SCH (08:04)
[2018-05-13 09:40] VITALS: BP 105/61
[2018-05-13] MEDS: CHOLESTYRAMINE 4 GM PACKET PO SCH (10:00)
== END 2018-05-13 10:22 | disposition home or self-care (01) | DRG 871 ==
LOC: ER 12:51 → ERHOLD 17:36 → MED/SURG2 20:55 → OBSVTOIN 05-07 10:28
PROVIDERS: ADMIT Internal Medicine; ATTEND Internal Medicine
DX: A41.9 Sepsis, unspecified organism (principal); J18.9 Pneumonia, unspecified organism; J96.21 Acute and chronic respiratory failure with hypoxia; E43 Unspecified severe protein-calorie malnutrition; J44.1 Chronic obstructive pulmonary disease with (acute) exacerbation; Z68.1 Body mass index [BMI] 19.9 or less, adult; K50.10 Crohn's disease of large intestine without complications; A09 Infectious gastroenteritis and colitis, unspecified; J44.0 Chronic obstructive pulmonary disease with (acute) lower respiratory infection; Z99.81 Dependence on supplemental oxygen; G30.9 Alzheimer's disease, unspecified; F02.80 Dementia in other diseases classified elsewhere, unspecified severity, without behavioral disturbance, psychotic disturbance, mood disturbance, and anxiety; Z87.891 Personal history of nicotine dependence; I10 Essential (primary) hypertension; J84.10 Pulmonary fibrosis, unspecified; G62.9 Polyneuropathy, unspecified; N32.81 Overactive bladder
CPT/HCPCS: 36415; 36600; 71045; 74018; 74177; 80048; 80053; 81001; 82150; 82550; 82553; 82805; 83605; 83690; 84484; 85025; 85610; 85651; 85730; 86140; 87040; 87045; 87493; 93005; 94640; 96361; 99285; G0378; J1956; J2405; J2920; J2930; J7030; Q9967